=== PATIENT | male | born 1970 | race Caucasian/White ===

== ENCOUNTER 2019-11-21 10:57 | Outpatient (REF) | payer MEDICAID, SELFPAY | END 2019-11-21 10:58 | disposition home or self-care (01) | LOC: HO.LAB 10:57 | PROVIDERS: Visit Provider Internal Medicine | DX: Z20.828 Contact with and (suspected) exposure to other viral communicable diseases (principal) | CPT/HCPCS: 36415; 87635 ==

== ENCOUNTER 2019-11-28 16:48 | Emergency (ER) | payer MEDICAID, SELFPAY | END 2019-11-28 19:00 | disposition left against medical advice (07) | PROVIDERS: Emergency Provider Emergency Medicine | DX: Z76.0 Encounter for issue of repeat prescription (principal) | CPT/HCPCS: 99281 ==

== ENCOUNTER 2019-11-29 10:53 | Emergency (ER) | payer MEDICAID, SELFPAY ==
[2019-11-29 11:09] VITALS: BP 145/90; PULSE 97; RESP 17; TEMP 36.6; O2SAT 94; BMI 30.1
--- NOTE | 2019-11-29 11:18 | ED_ITS ---
HPI - General Adult General Chief complaint: General Medical Stated complaint: MED REFILL Time Seen by Provider: 11/29/19 11:18 Source: patient Mode of arrival: ambulatory History of Present Illness HPI narrative: 49 y/o with history of recently diagnosed PE started on Eliquis - given starter dose pack and is about to run out of his prescription. He is here for medication refill. He made an appointment with PCP but it is not for several more weeks. He denies chest pain, SOB. MD complaint: medication refill Onset (ago): unknown Relieving factors: none Exacerbating factors: none Associated symptoms: denies other symptoms Treatments prior to arrival: none Related Data Previous Rx's Medication Instructions Recorded apixaban [Eliquis] 5 mg PO BID #60 tab 11/29/19 Allergies Allergy/AdvReac Type Severity Reaction Status Date / Time No Known Allergies Allergy Unverified 11/02/19 15:38 Review of Systems Review of Systems: Constitutional: No Fever, No Chills ENT/Mouth: No sore throat, No Rhinorrhea, No Swallowing Difficulty Cardiovascular: No Chest Pain, No SOB, No Orthopnea, No Edema Respiratory: No Cough, No Sputum, No Wheezing, No dyspnea Gastrointestinal: No Hematochezia, No Melena Genitourinary: No Dysuria, No Urinary Frequency, No Hematuria Musculoskeletal: No joint pain, No Myalgias Skin: + Skin Lesions, No rash Neuro: No Weakness, No Numbness, No Dizziness, No Headache Psych: No Anxiety/Panic, No Depression Heme/Lymph: + Bruising, No Lymphadenopathy Endocrine: No Polyuria, No Polydipsia [facility] Past Medical History Medical History (Updated 11/29/19 @ 11:23 by ADEOLA Fish) Pulmonary embolism Social History Social History (Updated 11/29/19 @ 11:49 by ADEOLA Fish) Alcohol intake: current Alcohol intake frequency: a few times a week Alcohol type: beer Smoking Status: Current every day smoker Use of substances other than those prescribed or required for medical reasons: No Substance Use Type: Crack/Cocaine Advance Directives: No Advance Directives Information Provided: No Physical Exam Vital Signs: Vital Signs: Vital Signs Temp Pulse Resp BP Pulse Ox 11/29/19 11:09 97.8 F 97 17 145/90 H 94 Body Mass Index 30.1 Appearance: Alert. Oriented X3. No acute distress. HEENT: normal inspection CVS: Normal heart rate and rhythm. Pulses normal. Respiratory: No respiratory distress. Skin: Skin warm and dry. Normal skin color. Normal skin turgor. No rashes. Extremities: left upper extremity with tenderness along superficial vein of brachial area - no erythema or edema. +2 radial pulses. Neuro: Oriented X 3. No motor deficit. No sensory deficit. Course Course Course Narrative: needs Eliquis refill until he can be seen by PCP also asked to evaluate left upper extrmity tenderness and bumps - exam supports superficial thrombophelbitis. doubt UE DVT given exam findings and he is anticoagulated with no provoking factors. Discharge Plan Discharge Clinical Impression: Medication refill Superficial thrombophlebitis of arm Qualifiers: Laterality: left Qualified Code(s): I80.8 - Phlebitis and thrombophlebitis of other sites Patient Disposition: Home, Self-Care Instructions: Superficial Thrombophlebitis (ED) Additional Instructions: Take your Eliquis as directed. Follow up with your doctor for further management and further medication refills. Prescriptions: New Eliquis 5 mg tablet 5 mg PO BID Qty: 60 RF: 1 Interventions: ED Discharge Assessment Last Done: 11/29/19 11:30 Discharge Date/Time: 11/29/19 11:30
== END 2019-11-29 11:30 | disposition home or self-care (01) ==
PROVIDERS: Emergency Provider Emergency Medicine
DX: I80.8 Phlebitis and thrombophlebitis of other sites (principal); Z76.0 Encounter for issue of repeat prescription; F14.90 Cocaine use, unspecified, uncomplicated; F17.200 Nicotine dependence, unspecified, uncomplicated; Z71.6 Tobacco abuse counseling; Z79.01 Long term (current) use of anticoagulants; Z86.711 Personal history of pulmonary embolism
CPT/HCPCS: 99283

== ENCOUNTER 2019-12-26 22:11 | Emergency (ER) | payer MEDICAID, SELFPAY ==
[2019-12-26 22:14] VITALS: BP 141/84; PULSE 120; RESP 18; TEMP 36.1; O2SAT 99; BMI 28.8
--- NOTE | 2019-12-27 | CT_ITS ---
EXAMINATION: CT HEAD WITHOUT CONTRAST CLINICAL INFORMATION: Headache. COMPARISON: None. TECHNIQUE: Contiguous helical images of the brain were obtained without IV contrast. Multiplanar reconstructions were performed. DLP: 795 mGy-cm. FINDINGS: There are no pathologic extra-axial fluid collections. The lateral, third, fourth ventricles are nondilated and concordant with the appearance of the sulci. There is no evidence for acute intraparenchymal hemorrhage or infarct. There is neither mass nor mass effect. There is no shift of midline structures. The paranasal sinuses and mastoid air cells are clear. There are no osseous lesions. CT/CT head/brain wo con IMPRESSION: No evidence for acute intracranial injury. Automated exposure control (Care Dose) Adjustment of the mA and/or kv according to patient size (this includes techniques or standardized protocols for targeted exams where dose is matched to indication / reason for exam; i.e. extremities or head).
[2019-12-27] MEDS: diphenhydrAMINE HCL 25 MG TABLET 50 MG PO (00:18)
[2019-12-27] MEDS: Metoclopramide HCl 10 MG TABLET PO (00:19)
--- NOTE | 2019-12-27 00:41 | ED_ITS ---
HPI - Headache General Chief Complaint: Headache Stated Complaint: HEADACHE Time Seen by Provider: 12/26/19 23:39 Source: patient Mode of arrival: ambulatory Limitations: no limitations History of Present Illness HPI Narrative: Patient's presents to ED for headache that began around 12:00 p.m.. Patient describes headache as frontal pressure headache. Patient states headache improving with marijuana. Patient states slight photophobia. Patient does have history of migraines. Patient denies any slurred speech, neck stiffness, shortness of breath, chest pain, loss of vision, slurred speech, weakness of extremities. Patient came to the ED disc to make sure there was no bleeding the brain because he is on Eliquis. Patient denies any recent head trauma Related Data Previous Rx's Medication Instructions Recorded apixaban [Eliquis] 5 mg PO BID #60 tab 11/29/19 [id number]-cngcowswwtaib-cdqj 1 cap PO Q4-6H PRN #28 cap 12/27/19 [Fioricet] Allergies Allergy/AdvReac Type Severity Reaction Status Date / Time No Known Allergies Allergy Verified 12/26/19 23:31 Review of Systems Review of Systems: Yes all other systems are reviewed and are negative Constitutional: Constitutional: Reports no additional constitutional complaints and Reports headache(s) Eyes: Eyes: Reports as per HPI and Reports no additional eye complaints ENT: Reports system reviewed and no additional complaints, except as documented, Reports as per HPI and Reports headache(s) Cardiovascular: Cardiovascular: Reports as per HPI and Reports no additional cardiovascular complaints Respiratory: Respiratory: Reports as per HPI and Reports no additional respiratory complaints Gastrointestinal: Gastrointestinal: Reports as per HPI and Reports no additional gastrointestinal complaints Genitourinary: Genitourinary: Reports no additional male genitourinary complaints and Reports as per HPI Musculoskeletal: Musculoskeletal: Reports no additional musculoskeletal complaints and Reports as per HPI Neurologic: Reports system reviewed and no additional complaints, except as documented, Reports as per HPI and Reports headache(s) Psychiatric: Psychiatric: Reports no additional psychiatric complaints and Reports as per HPI PMFSH Past Medical History Medical History (Updated 12/27/19 @ 01:14 by ADEOLA Rico) Pulmonary embolism Social History Social History (Updated 11/29/19 @ 11:49 by ADEOLA Fish) Alcohol intake: current Alcohol intake frequency: does not drink Alcohol type: beer Smoking Status: Current every day smoker Use of substances other than those prescribed or required for medical reasons: No Substance Use Type: Marijuana Substance Use Frequency: Occasionally Advance Directives: No Advance Directives Information Provided: No Physical Exam Vital Signs: Vital Signs: Last Vital Signs Temp 97 F 12/26/19 22:14 Pulse 98 12/27/19 01:08 Resp 15 12/27/19 01:08 BP 134/88 12/27/19 01:08 Pulse Ox 98 12/27/19 01:08 Body Mass Index 28.8 Const: General: cooperative, healthy appearing, comfortable, no acute distress, well developed, alert and awake Orientation/consciousness: patient oriented x3 HENMT: Head: Yes normal to inspection, Yes No palpable skull fracture present, Yes atraumatic, No Acrocyanosis present, No Coffey's sign, No contusion, No cranial bruits, No laceration, No palpable skull fracture, No raccoon eyes and No Temporal artery tenderness present Eyes: Other: mild photophobia General: appearance normal, both eyes and all related structures Visual Carnes: normal visual carnes by confrontation Neck: Neck: Yes normal visual inspection, Yes full ROM, Yes no lymphadenopathy, Yes no meningeal signs, Yes trachea midline and No tender Chest: Chest palpation & inspection: normal inspection of the chest, normal palpation of entire chest wall and no localized rib tenderness Resp: Effort & Inspection: normal respiratory effort and able to speak in complete sentences Auscultation: clear to auscultation bilaterally, no crackles, no rales, no rhonchi and no wheezes Cardio: Jugular venous distension: no JVD Heart sounds: S1 normal heart sound present and S2 normal heart sound present GI: Inspection: Yes normal to inspection and No abdominal wall ecchymosis Palpation (GI): Soft to palpation, not firm, nontender, no guarding and not rigid : General: No CVA tenderness and Yes no CVA tenderness Back/Spine/Pelvis: Back: no CVA tenderness, No CVA tenderness and No back tenderness Skin: General skin exam: no rashes or lesions noted Neuro: Other: cranial nerves intact. Negative facial droop. Motor/neuro /vascular exam of all extremities are intact. Strength is equal in all extremities. Negative Romberg test. Patient able to do rapid hand eye movements. Negative for nystagmus. General: patient oriented x3, gait normal, no meningeal signs and CN's II-XI intact bilaterally Cranial nerves: Yes CN's II-XII intact bilaterally Course Course Course Narrative: patient will be sent for head CT scan to rule out bleed. Patient had the same time will be given Fioricet, Benadryl, and Reglan. Will also check bilateral eye pressures. Reevaluation(s) Reevaluation #1: Patient's headache resolved after receiving Fioricet, Benadryl, and Reglan. Patient's head CT scan came back negative for bleed or stroke. Patient left eye tonometry pressure is 6. Patient's right eye tonometry pressures 10. Negative for glaucoma. Negative for any temporal tenderness or blurry vision to indicate temporal arthritis. Negative for any dizziness or chest pain to indicate NV. Patient is safe for discharge Time: 01:12 MDM - Headache MDM Narrative Medical decision making narrative: migraines Discharge Plan Discharge Clinical Impression: Migraine Patient Disposition: Home, Self-Care Instructions: Migraine Headache (ED) Additional Instructions: return to the ED for worsening headache, nausea, vomiting, neck stiffness, slurred speech, loss of vision, paralysis of extremities, or any other concerning symptoms. Please follow-up witth your PCP Prescriptions: New nhbtwwhhbg-dqodurrvaavnv-rejf [Fioricet] 50-300-40 mg capsule 1 cap PO Q4-6H PRN (Reason: pain) Qty: 28 RF: 0 No Action Eliquis 5 mg tablet 5 mg PO BID Qty: 60 RF: 1 Interventions: ED Discharge Assessment Last Done: 12/27/19 01:25 Discharge Date/Time: 12/27/19 01:26 Print Language: Slovak
[2019-12-27 01:08] VITALS: BP 134/88; PULSE 98; RESP 15; O2SAT 98
== END 2019-12-27 01:26 | disposition home or self-care (01) ==
PROVIDERS: Emergency Provider Emergency Medicine
DX: G43.909 Migraine, unspecified, not intractable, without status migrainosus (principal); H53.143 Visual discomfort, bilateral; Z79.899 Other long term (current) drug therapy; F17.200 Nicotine dependence, unspecified, uncomplicated; Z71.6 Tobacco abuse counseling
CPT/HCPCS: 70450; 99284; Q0163

== ENCOUNTER 2019-12-28 13:57 | Outpatient (REF) | payer MEDICAID, SELFPAY ==
--- NOTE | 2019-12-28 14:00 | CT_ITS ---
EXAMINATION: CT ANGIOGRAM OF THE CHEST WITH AND WITHOUT CONTRAST (CT PULMONARY ANGIOGRAM FOR PE) CLINICAL INFORMATION: Pulmonary embolism. COMPARISON: 10/31/2019 TECHNIQUE: Prior to contrast administration, noncontrast localization images were obtained. Subsequently, multidetector volumetric imaging was performed from the thoracic inlet to below the diaphragms following the administration of 65 mL Omnipaque 350 intravenous contrast. No contrast reaction reported Sagittal, coronal, and MIP oblique sagittal reformatted images were obtained on the CT workstation, uploaded to PACS, and reviewed. This CT examination was performed using dose optimization techniques as appropriate, variously including the following: *Automated exposure control *Adjustment of mA and/or kV according to patient size (this includes techniques or standardized protocols for targeted exams where dose is matched to indication/reason for exam; i.e. extremities or head) *Use of iterative reconstruction technique Total exam dose-length product 147 mGy-cm FINDINGS: QUALITY OF STUDY/CONTRAST BOLUS: Satisfactory. PULMONARY ARTERIES: No central or segmental pulmonary emboli. The previous right lower lobe subsegmental pulmonary embolism has resolved. THORACIC AORTA: No aneurysm or dissection. LUNG: No focal consolidation, nodules or masses. The central airways are patent. PLEURA: No pleural effusion or pneumothorax. MEDIASTINUM: Normal heart size. No pericardial effusion. No hilar or mediastinal lymphadenopathy. No evidence of septal bowing or right heart strain. CHEST WALL/AXILLA: No axillary or internal mammary lymphadenopathy. OSSEOUS STRUCTURES: No acute or suspicious osseous abnormality. Mild degenerative changes in the spine. UPPER ABDOMEN: Unremarkable. No reflux of contrast into the hepatic veins to suggest elevated right heart pressures. CT/CT angio chest IMPRESSION: No pulmonary embolism or other acute intrathoracic abnormality. There is resolution of the previous right lower lobe subsegmental pulmonary embolism. VTE: negative
== END 2019-12-28 13:58 | disposition home or self-care (01) ==
LOC: HO.CT 13:57
DX: I26.99 Other pulmonary embolism without acute cor pulmonale (principal)
CPT/HCPCS: 71275

== ENCOUNTER 2020-02-08 07:29 | Emergency (ER) | payer MEDICAID, SELFPAY ==
[2020-02-08 07:50] VITALS: BP 113/46; PULSE 78; RESP 18; TEMP 35.8; O2SAT 100; BMI 31.5
--- NOTE | 2020-02-08 08:12 | XR_ITS ---
EXAMINATION: XR ANKLE, RIGHT CLINICAL INFORMATION: Redness COMPARISON: None TECHNIQUE: AP, lateral, and mortise views of the right ankle. FINDINGS: There is mild medial and lateral soft tissue swelling. No gas tracking in soft tissue planes. There is no bony destructive process. Bony mineralization is normal. No periostitis. There is no fracture or dislocation. No joint narrowing or erosive change. The ankle mortise is symmetric. No visible ankle capsular effusion. The subtalar joint is normal. The retrocalcaneal recess is preserved. There is some benign fine linear calcification anterior soft tissues on lateral view. XR/XR ankle RT min 3V IMPRESSION: 1. Mild soft tissue swelling. No bony destructive process, fracture, or gas tracking in the soft tissues. 2. No visible ankle capsular effusion. No joint narrowing.
--- NOTE | 2020-02-08 08:17 | ED.LOWEXIN ---
HPI - Extremity Injury (Lower) General Chief Complaint: Extremity Injury, Lower Stated Complaint: swollen rt leg Time Seen by Provider: 02/08/20 08:12 History of Present Illness HPI Narrative: Patient is a 49-year-old male history of blood clots. On Eliquis. Claims compliance. Also has a long history of heroin abuse. Last shooting up was last night. Complaining of swelling redness to the right ankle. No fever no chills. No systemic complaints. No coughing or congestion or upper respiratory symptoms no diaphoresis. Patient is from home. Pain on ambulation. Related Data Previous Rx's Medication Instructions Recorded apixaban [Eliquis] 5 mg PO BID #60 tab 11/29/19 [id number]-[id number] 1 cap PO Q4-6H PRN #28 cap 12/27/19 [Fioricet] clindamycin HCl 300 mg PO Q6H 7 Days #28 cap 02/08/20 Allergies Allergy/AdvReac Type Severity Reaction Status Date / Time No Known Allergies Allergy Verified 12/26/19 23:31 Review of Systems Review of Systems: Constitutional: No Weight loss, No Fever, No Chills, No Night Sweats, No Fatigue, No Malaise ENT/Mouth: No Hearing loss, No Ear Pain, No Nasal Congestion, No Sinus Pain, No Hoarseness, No sore throat, No Rhinorrhea, No Swallowing Difficulty Eyes: No Eye Pain, No Swelling, No Redness, No Foreign Body, No Discharge, No Vision Changes Cardiovascular: No Chest Pain, No SOB, No Dyspnea on Exertion, No Orthopnea, No Edema, No Palpitations Respiratory: No Cough, No Sputum, No Wheezing, No Smoke Exposure, No Dyspnea Gastrointestinal: No Nausea, No Vomiting, No Diarrhea, No Constipation, No abdominal Pain, No Hematochezia, No Melena Genitourinary: no irregular bleeding, No Dysuria, No Urinary Frequency, No Hematuria, No Urinary Incontinence, No Urgency, No Flank Pain, No Urinary Flow Changes, No Hesitancy Musculoskeletal: Positive right ankle pain, positive right ankle swelling Skin: No Skin Lesions, No rash Neuro: No Weakness, No Numbness, No Paresthesias, No Loss of Consciousness, No Dizziness, No Headache Psych: No Anxiety/Panic, No Depression, No SI/HI/AH/VH, No Social Issues, Heme/Lymph: No Bruising, No Bleeding,No Lymphadenopathy Endocrine: No Polyuria, No Polydipsia, No Temperature Intolerance [facility] Past Medical History Attestation statement: The following information was validated with the patient. Medical History Pulmonary embolism Surgical History History of appendectomy Social History Social History (Updated 11/29/19 @ 11:49 by ADEOLA Fish) Alcohol intake: unknown Smoking Status: Unknown if ever smoked Use of substances other than those prescribed or required for medical reasons: Yes Substance Use Type: IV Drugs Advance Directives: No Advance Directives Information Provided: No Physical Exam Vital Signs: Vital Signs: Last Vital Signs Temp 98.7 F 02/08/20 12:24 Pulse 70 02/08/20 12:24 Resp 16 02/08/20 12:24 BP 154/95 H 02/08/20 12:24 Pulse Ox 99 02/08/20 12:24 Body Mass Index 31.5 Appearance: Alert. Oriented X3. No acute distress. Eyes: Pupils equal, round and reactive to light. ENT: Pharynx normal. Neck: Normal inspection. Neck supple. No lymph nodes noted. No crepitus CVS: Normal heart rate and rhythm. Pulses normal. Normal S1 and S2 Respiratory: No respiratory distress. Breath sounds normal. No Wheezing. No rales Abdomen: Soft and nontender. No rigidity. No distention. good BS x4 Skin: Skin warm and dry. Normal skin color. Normal skin turgor. Extremities: Examination of the right ankle showed slight erythema over the lateral malleolus. With decreased range of motion. Swelling. Pulse 2 +at dorsalis pedis. Sensation intact. Neuro: Oriented X 3. No motor deficit. No sensory deficit. Moving all extermities. No slurred speech MDM - Extremity Injury (Lower) MDM Narrative Medical decision making narrative: Patient's white count is normal. Is on Eliquis. Doppler showed no evidence of DVT. Patient is x-ray showed no evidence of fracture. Patient's sed rate is 22 on the low side. This provider cannot feel enough fluid to be tapped. An ultrasound of the ankle done. There is no effusion noted. Discussed with interventional radiology there is not enough fluid to be tapped by IR. Question cellulitis of the ankle. Will start patient on antibiotics. Will discharge patient home follow-up on an outpatient basis. Ask patient to stop using heroin. Close follow-up on an outpatient basis. Differential Diagnosis Differential diagnosis: Likely ankle sprain and strain Lab Data Attestation: I reviewed the patient's lab results. Result diagrams: 02/08/20 08:50 02/08/20 08:50 Labs: Lab Results 02/08/20 02/08/20 02/08/20 Range/Units 08:50 08:50 08:50 WBC 6.8 (4.8-10.8) X10*3/uL RBC 4.06 L (4.60-5.80) X10*6/uL Hgb 11.9 L (14.0-18.0) g/dl Hct 36.5 L (42-52) % MCV 89.9 (80-98) fL MCH 29.3 (27.0-33.0) pg MCHC 32.6 (31.0-36.0) g/dl RDW 12.7 (11.0-16.0) % Plt Count 213 (160-400) X10*3/uL MPV 9.1 L (9.4-12.4) fL Immature Gran % (Auto) 0.3 (0.0-0.4) % Neut % (Auto) 73.6 H (45-73) % Lymph % (Auto) 15.6 L (20-40) % [place] % (Auto) 9.1 (2-11) % Eos % (Auto) 1.3 (0-4) % Baso % (Auto) 0.1 (0-2) % Lymph # (Auto) 1.1 L (1.2-4.9) X10*3/uL [place] # (Auto) 0.6 (0.1-1.2) X10*3/uL Eos # (Auto) 0.1 (0.0-0.4) X10*3/uL Baso # (Auto) 0.0 (0.0-0.2) X10*3/uL Abs Immat Gran (auto) 0.02 (0.00-0.03) X10*3/uL Absolute Neuts (auto) 5.0 (2.0-8.3) X10*3/uL Absolute Nucleated RBC 0.000 (0.0-0.012) X10*3/uL Nucleated RBC % (auto) 0.0 (0.0-0.2) /100WBC ESR 22 H (0-15) MM/HR PT 13.1 H (10.8-13.0) SEC INR 1.1 (0.9-1.1) Sodium (135-145) mmol/L Potassium (3.3-5.1) mmol/l Chloride (96-108) mmol/L Carbon Dioxide (22-29) mmol/L Anion Gap (12-20) BUN (9-16) mg/dL Creatinine (0.5-1.4) mg/dL Estim Creat Clear Calc Estimated GFR Random Glucose (60-115) mg/dL Lactic Acid (0.5-2.0) mmol/L Uric Acid (3.4-7.0) mg/dL Calcium (8.4-10.2) mg/dL 02/08/20 02/08/20 Range/Units 08:50 08:56 WBC (4.8-10.8) X10*3/uL RBC (4.60-5.80) X10*6/uL Hgb (14.0-18.0) g/dl Hct (42-52) % MCV (80-98) fL MCH (27.0-33.0) pg MCHC (31.0-36.0) g/dl RDW (11.0-16.0) % Plt Count (160-400) X10*3/uL MPV (9.4-12.4) fL Immature Gran % (Auto) (0.0-0.4) % Neut % (Auto) (45-73) % Lymph % (Auto) (20-40) % [place] % (Auto) (2-11) % Eos % (Auto) (0-4) % Baso % (Auto) (0-2) % Lymph # (Auto) (1.2-4.9) X10*3/uL [place] # (Auto) (0.1-1.2) X10*3/uL Eos # (Auto) (0.0-0.4) X10*3/uL Baso # (Auto) (0.0-0.2) X10*3/uL Abs Immat Gran (auto) (0.00-0.03) X10*3/uL Absolute Neuts (auto) (2.0-8.3) X10*3/uL Absolute Nucleated RBC (0.0-0.012) X10*3/uL Nucleated RBC % (auto) (0.0-0.2) /100WBC ESR (0-15) MM/HR PT (10.8-13.0) SEC INR (0.9-1.1) Sodium 136 (135-145) mmol/L Potassium 4.0 (3.3-5.1) mmol/l Chloride 103 (96-108) mmol/L Carbon Dioxide 27 (22-29) mmol/L Anion Gap 10 L (12-20) BUN 16 (9-16) mg/dL Creatinine 0.92 (0.5-1.4) mg/dL Estim Creat Clear Calc 117.5 Estimated GFR > 60 Random Glucose 150 H (60-115) mg/dL Lactic Acid 1.4 (0.5-2.0) mmol/L Uric Acid 4.6 (3.4-7.0) mg/dL Calcium 8.3 L (8.4-10.2) mg/dL Discharge Plan Discharge Clinical Impression: Ankle sprain and strain, Cellulitis Patient Disposition: Home, Self-Care Instructions: Cellulitis (ED) Additional Instructions: Please stop using heroin. Using heroin can kill you. It can cause all types of infection. Please take your antibiotic diligently. Please closely follow-up with your doctor. Prescriptions: New clindamycin HCl 300 mg capsule 300 mg PO Q6H 7 Days Qty: 28 RF: 0 No Action ofatkwmygb-kqafxocmlloow-mdig [Fioricet] 50-300-40 mg capsule 1 cap PO Q4-6H PRN (Reason: pain) Qty: 28 RF: 0 Eliquis 5 mg tablet 5 mg PO BID Qty: 60 RF: 1 Referrals: [facility] [Primary Care Provider] - 2 days
[2020-02-08 08:57] LABS: MANUAL DIFF FLAG NO
[2020-02-08 08:59] LABS: Basophils Percent Auto 0.1 % (0-2); Eosinophils Absolute Auto 0.1 X10*3/uL (0.0-0.4); Eosinophils Percent Auto 1.3 % (0-4); Hematocrit 36.5 % (42-52); Hemoglobin 11.9 g/dl (14.0-18.0); Imm Gran Abs Auto 0.02 X10*3/uL (0.00-0.03); Imm Gran Pct Auto 0.3 % (0.0-0.4); Lymphocytes Absolute Auto 1.1 X10*3/uL (1.2-4.9); Lymphocytes Percent Auto 15.6 % (20-40); Mean Corpuscular HGB Conc 32.6 g/dl (31.0-36.0); Mean Corpuscular Hemoglobin 29.3 pg (27.0-33.0); Mean Corpuscular Volume 89.9 fL (80-98); Mean Platelet Volume 9.1 fL (9.4-12.4); Monocytes Absolute Auto 0.6 X10*3/uL (0.1-1.2); Monocytes Percent Auto 9.1 % (2-11); Neutrophils Percent Auto 73.6 % (45-73); Platelet Count 213 X10*3/uL (160-400); Red Blood Count 4.06 X10*6/uL (4.60-5.80); Red Cell Distribution Width 12.7 % (11.0-16.0); White Blood Count 6.8 X10*3/uL (4.8-10.8)
[2020-02-08 09:10] LABS: INTERNATIONAL NORM RATIO 1.1 (0.9-1.1); Prothrombin Time 13.1 SEC (10.8-13.0)
[2020-02-08 09:22] LABS: Lactic Acid 1.4 mmol/L (0.5-2.0)
[2020-02-08 09:27] LABS: Anion Gap 10 (12-20); Blood Urea Nitrogen 16 mg/dL (9-16); Calcium 8.3 mg/dL (8.4-10.2); Carbon Dioxide 27 mmol/L (22-29); Chloride 103 mmol/L (96-108); Creatinine Clr Calc Pharmacy 117.5; Estimated Glomerular Filt Rate > 60; Glucose Random 150 mg/dL (60-115); Sodium 136 mmol/L (135-145); Uric Acid 4.6 mg/dL (3.4-7.0)
[2020-02-08 09:37] LABS: Erythrocyte Sedimentation Rate 22 MM/HR (0-15)
[2020-02-08 10:00] VITALS: RESP 16
--- NOTE | 2020-02-08 10:29 | US_ITS ---
EXAMINATION: US EXTREMITY NONVASCULAR CLINICAL INFORMATION: Redness, swelling. Assess for effusion. COMPARISON: Radiographs right ankle 02/08/2020 TECHNIQUE: Ultrasound of the right ankle soft tissues is performed. Grayscale imaging and color Doppler are performed. FINDINGS: There is circumferential edema in the subcutaneous space without focal loculated fluid collection in the superficial lower visualized deep soft tissues. No visible ankle capsular effusion. No soft tissue abscess. Note no synovitis seen. US/US extremity nonvascular IMPRESSION: 1. Circumferential subcutaneous edema around right ankle. 2. No visible capsular effusion, tenosynovitis, or abscess.
[2020-02-08 12:00] VITALS: RESP 16
[2020-02-08 12:24] VITALS: BP 154/95; PULSE 70; RESP 16; TEMP 37.1; O2SAT 99
== END 2020-02-08 14:19 | disposition home or self-care (01) ==
PROVIDERS: Emergency Provider Emergency Medicine Emergency Medical Services
DX: S93.401A Sprain of unspecified ligament of right ankle, initial encounter (principal); S96.911A Strain of unspecified muscle and tendon at ankle and foot level, right foot, initial encounter; X58.XXXA Exposure to other specified factors, initial encounter; M25.571 Pain in right ankle and joints of right foot; L03.115 Cellulitis of right lower limb; F11.10 Opioid abuse, uncomplicated; Y93.9 Activity, unspecified; Y92.9 Unspecified place or not applicable; Y99.9 Unspecified external cause status; Z86.718 Personal history of other venous thrombosis and embolism; Z79.01 Long term (current) use of anticoagulants
CPT/HCPCS: 36415; 73610; 76882; 80048; 83605; 84550; 85025; 85610; 85652; 87040; 99284; J0690

== ENCOUNTER 2020-06-11 16:15 | Outpatient (REF) | payer MEDICAID, SELFPAY | END 2020-06-11 16:16 | disposition home or self-care (01) | LOC: HO.LAB 16:15 | PROVIDERS: Visit Provider Internal Medicine | DX: Z13.89 Encounter for screening for other disorder (principal) ==

== ENCOUNTER 2020-09-07 01:46 | Emergency (ER) | payer MEDICAID, SELFPAY ==
--- NOTE | ~2020-09-07 | CT_ITS ---
EXAMINATION: CT ABDOMEN AND PELVIS WITHOUT CONTRAST CLINICAL INFORMATION: Right flank pain COMPARISON: None TECHNIQUE: Multidetector volumetric imaging was performed from the superior aspect of the liver through the pubic symphysis. Sagittal and coronal reformatted images were obtained on the technologist's workstation. This CT examination was performed using dose optimization techniques as appropriate, variously including the following: *Automated exposure control *Adjustment of mA and/or kV according to patient size (this includes techniques or standardized protocols for targeted exams where dose is matched to indication/reason for exam; i.e. extremities or head) *Use of iterative reconstruction technique DLP: 637 mGy-cm FINDINGS: LUNG BASES: The visualized lung bases are unremarkable. LIVER, GALLBLADDER, AND BILIARY TREE: The liver is normal in size, shape, and attenuation. No focal hepatic lesion or biliary ductal dilatation is present. The gallbladder appears contracted. PANCREAS: Unremarkable. SPLEEN: Unremarkable. ADRENAL GLANDS: Unremarkable. KIDNEYS AND URETERS: The kidneys are normal in size, shape, and attenuation. No hydronephrosis, hydroureter, or obstructing calculi seen. Punctate calculus noted in the lower left kidney. No perinephric stranding. BLADDER: Unremarkable. GASTROINTESTINAL TRACT: The small and large bowel are unremarkable. Moderate amount of stool is present in the colon. The appendix is is not visualized. No free fluid or free air is seen. ABDOMINAL WALL: No significant hernia is appreciated. LYMPH NODES: Normal. VASCULAR: Unremarkable. PELVIC VISCERA: Unremarkable. OSSEOUS STRUCTURES: Mild scattered degenerative changes noted in the spine. CT/CT abdomen pelvis wo con IMPRESSION: No hydronephrosis or obstructing calculus. Punctate left lower pole renal calculus noted.
[2020-09-07 02:22] VITALS: BP 105/61; PULSE 94; RESP 16; TEMP 37; O2SAT 99; BMI 32.2
[2020-09-07 02:53] LABS: Glucose Urine UA NEG (NEG); Leukocyte Esterase Urine 1+ (NEG); Nitrite Urine NEG (NEG); Specific Gravity - Urine >= 1.030 (1.005-1.025); Urine Blood 1+ (NEG); Urine Ketones NEG (NEG); Urine Protein NEG (NEG-TRACE)
[2020-09-07 02:54] LABS: Appearance Urine CLEAR; Color Urine YELLOW
[2020-09-07 03:02] LABS: Bacteria Urine TRACE /LPF; RBC Urine 0-2 /HPF (0); Squamous Epithelial Cell Urine TRACE /LPF
[2020-09-07 03:04] LABS: Amphetamine Screen Urine Not Detected (Not Detect); Barbiturates, Urine Not Detected (Not Detect); Benzodiazepines Screen Urine Not Detected (Not Detect); Cannabinoid Screen Urine Not Detected (Not Detect); Cocaine Screen Urine POSITIVE (Not Detect); Opiate Screen Urine POSITIVE (Not Detect); Phencyclidine Screen Urine Not Detected (Not Detect)
[2020-09-07 03:11] LABS: MANUAL DIFF FLAG NO
[2020-09-07 03:14] LABS: Basophils Percent Auto 0.2 % (0-2); Eosinophils Absolute Auto 0.2 X10*3/uL (0.0-0.4); Hematocrit 35.4 % (42-52); Hemoglobin 11.5 g/dl (14.0-18.0); Imm Gran Abs Auto 0.01 X10*3/uL (0.00-0.03); Imm Gran Pct Auto 0.2 % (0.0-0.4); Lymphocytes Absolute Auto 1.4 X10*3/uL (1.2-4.9); Lymphocytes Percent Auto 24.7 % (20-40); Mean Corpuscular HGB Conc 32.5 g/dl (31.0-36.0); Mean Corpuscular Hemoglobin 28.8 pg (27.0-33.0); Mean Corpuscular Volume 88.7 fL (80-98); Mean Platelet Volume 9.1 fL (9.4-12.4); Monocytes Absolute Auto 0.6 X10*3/uL (0.1-1.2); Monocytes Percent Auto 10.8 % (2-11); Neutrophils Absolute Auto 3.5 X10*3/uL (2.0-8.3); Neutrophils Percent Auto 61.1 % (45-73); Platelet Count 267 X10*3/uL (160-400); Red Blood Count 3.99 X10*6/uL (4.60-5.80); Red Cell Distribution Width 13.5 % (11.0-16.0); White Blood Count 5.8 X10*3/uL (4.8-10.8)
[2020-09-07 03:22] LABS: D Dimer 213 NG/ML
[2020-09-07 03:43] LABS: Anion Gap 12 (12-20); Blood Urea Nitrogen 15 mg/dL (9-16); Carbon Dioxide 26 mmol/L (22-29); Chloride 108 mmol/L (96-108); Creatinine Clr Calc Pharmacy 99.5; Estimated Glomerular Filt Rate > 60; Glucose Random 119 mg/dL (60-115); Potassium 3.7 mmol/L (3.3-5.1); Sodium 142 mmol/L (135-145)
--- NOTE | 2020-09-07 03:57 | ED_ITS ---
HPI - Back Pain/Injury General Chief Complaint: Back Pain/Injury Stated Complaint: PT believes to have blood clot, was admitted prev. Time Seen by Provider: 09/07/20 01:47 Source: patient Mode of arrival: ambulatory Limitations: no limitations History of Present Illness HPI Narrative: Patient comes emergency room complaining of right-sided flank pain for several days. Patient denies dysuria, no hematuria. No nausea or vomiting. Patient states the pain is constant, nonradiating, sharp. MD elicited complaint: back pain Related Data Previous Rx's Medication Instructions Recorded levofloxacin 500 mg PO DAILY #9 tab 09/07/20 Allergies Allergy/AdvReac Type Severity Reaction Status Date / Time No Known Allergies Allergy Verified 09/07/20 02:22 Review of Systems Review of Systems: Constitutional : No Weight loss, No Fever, No Chills, No Night Sweats, No Fatigue, No Malaise ENT/Mouth : No Hearing loss, No Ear Pain, No Nasal Congestion, No Sinus Pain, No Hoarseness, No sore throat, No Rhinorrhea, No Swallowing Difficulty Eyes: No Eye Pain, No Swelling, No Redness, No Foreign Body, No Discharge, No Vision Changes Cardiovascular : No Chest Pain, No SOB, No Dyspnea on Exertion, No Orthopnea, No Edema, No Palpitations Respiratory : No Cough, No Sputum, No Wheezing, No Smoke Exposure, No Dyspnea Gastrointestinal : No Nausea, No Vomiting, No Diarrhea, No Constipation, No abdominal Pain, No Hematochezia, No Melena Genitourinary : no irregular bleeding, No Dysuria, No Urinary Frequency, No Hem aturia, No Urinary Incontinence, No Urgency, complaining of right-sided Flank Pain, No Urinary Flow Changes, No Hesitancy Musculoskeletal : No joint pain, No Myalgias, No Joint Swelling Skin : No Skin Lesions, No rash Neuro : No Weakness, No Numbness, No Paresthesias, No Loss of Consciousness, No Dizziness, No Headache Psych : No Anxiety/Panic, No Depression, No SI/HI/AH/VH, No Social Issues, Heme/Lymph: No Bruising, No Bleeding,No Lymphadenopathy Endocrine : No Polyuria, No Polydipsia, No Temperature Intolerance PMFSH Past Medical History Medical History Pulmonary embolism Surgical History History of appendectomy Family History Family History (Updated 03/29/20 @ 09:23 by Salena Rothman) Sister Diabetes Maternal Grandfather Diabetes Social History Social History (Updated 03/29/20 @ 09:23 by Salena Rothman) Alcohol intake: never Patient Tobacco Use Status: Current everyday Tobacco user Years Smoked: 25 Use of substances other than those prescribed or required for medical reasons: Yes Substance Use Type: Crack/Cocaine and Heroin Substance Use Frequency: Chronic Longstanding Last Used Substance: Just Prior to Admission Any prior treatment program specific to substance use: No Advance Directives: No Advance Directives Information Provided: No Physical Exam Vital Signs: Vital Signs: Last Vital Signs Temp 98.6 F 09/07/20 02:22 Pulse 94 09/07/20 02:22 Resp 15 09/07/20 04:00 BP 105/61 09/07/20 02:22 Pulse Ox 99 09/07/20 02:22 Body Mass Index 32.2 Appearance: Alert. Oriented X3. No acute distress. Eyes: Pupils equal, round and reactive to light. ENT: Pharynx normal. Neck: Normal inspection. Neck supple. No lymph nodes noted. No crepitus CVS: Normal heart rate and rhythm. Pulses normal. Normal S1 and S2 Respiratory: No respiratory distress. Breath sounds normal. No Wheezing. No rales Abdomen: Soft and nontender. No rigidity. No distention. Mild right-sided CVA tenderness Skin: Skin warm and dry. Normal skin color. Normal skin turgor. Extremities: No lower extremity edema. No lower extremity edema. No Lacerations . No Rash Neuro: Oriented X 3. No motor deficit. No sensory deficit. Moving all extermities. No slurred speech. Course Course Course Narrative: I discussed the labs with the patient, patient likely having flank pain from the urinary tract infection, clinically pyelonephritis. Sepsis is not suspected. First dose of antibiotic levofloxacin was given in the emergency room. MDM - Back Pain/Injury Lab Data Result diagrams: 09/07/20 03:06 09/07/20 03:06 Labs: Lab Results 09/07/20 09/07/20 09/07/20 Range/Units 02:45 02:45 03:06 WBC 5.8 (4.8-10.8) X10*3/uL RBC 3.99 L (4.60-5.80) X10*6/uL Hgb 11.5 L (14.0-18.0) g/dl Hct 35.4 L (42-52) % MCV 88.7 (80-98) fL MCH 28.8 (27.0-33.0) pg MCHC 32.5 (31.0-36.0) g/dl RDW 13.5 (11.0-16.0) % Plt Count 267 (160-400) X10*3/uL MPV 9.1 L (9.4-12.4) fL Immature Gran % (Auto) 0.2 (0.0-0.4) % Neut % (Auto) 61.1 (45-73) % Lymph % (Auto) 24.7 (20-40) % [place] % (Auto) 10.8 (2-11) % Eos % (Auto) 3.0 (0-4) % Baso % (Auto) 0.2 (0-2) % Lymph # (Auto) 1.4 (1.2-4.9) X10*3/uL [place] # (Auto) 0.6 (0.1-1.2) X10*3/uL Eos # (Auto) 0.2 (0.0-0.4) X10*3/uL Baso # (Auto) 0.0 (0.0-0.2) X10*3/uL Abs Immat Gran (auto) 0.01 (0.00-0.03) X10*3/uL Absolute Neuts (auto) 3.5 (2.0-8.3) X10*3/uL Absolute Nucleated RBC 0.000 (0.0-0.012) X10*3/uL Nucleated RBC % (auto) 0.0 (0.0-0.2) /100WBC D-Dimer NG/ML Sodium (135-145) mmol/L Potassium (3.3-5.1) mmol/L Chloride (96-108) mmol/L Carbon Dioxide (22-29) mmol/L Anion Gap (12-20) BUN (9-16) mg/dL Creatinine (0.5-1.4) mg/dL Estim Creat Clear Calc Estimated GFR Random Glucose (60-115) mg/dL Calcium (8.4-10.2) mg/dL Urine Color YELLOW Urine Appearance CLEAR Urine pH 6.0 (5.0-8.0) Ur Specific [place] >= 1.030 H (1.005-1.025) Urine Protein NEG (NEG-TRACE) MG/DL Urine Glucose (UA) NEG (NEG) MG/DL Urine Ketones NEG (NEG) MG/DL Urine Blood 1+ H (NEG) Urine Nitrite NEG (NEG) Ur Leukocyte Esterase 1+ H (NEG) Urine RBC 0-2 (0) /HPF Urine WBC 1-4 (0-4) /HPF Ur Squamous Epith Cells TRACE /LPF Urine Bacteria TRACE /LPF Urine Opiates Screen POSITIVE H (Not Detect) Ur Barbiturates Screen Not Detected (Not Detect) Ur Phencyclidine Scrn Not Detected (Not Detect) Ur Amphetamines Screen Not Detected (Not Detect) U Benzodiazepines Scrn Not Detected (Not Detect) Urine Cocaine Screen POSITIVE H (Not Detect) U Marijuana (THC) Screen Not Detected (Not Detect) 09/07/20 09/07/20 Range/Units 03:06 03:06 WBC (4.8-10.8) X10*3/uL RBC (4.60-5.80) X10*6/uL Hgb (14.0-18.0) g/dl Hct (42-52) % MCV (80-98) fL MCH (27.0-33.0) pg MCHC (31.0-36.0) g/dl RDW (11.0-16.0) % Plt Count (160-400) X10*3/uL MPV (9.4-12.4) fL Immature Gran % (Auto) (0.0-0.4) % Neut % (Auto) (45-73) % Lymph % (Auto) (20-40) % [place] % (Auto) (2-11) % Eos % (Auto) (0-4) % Baso % (Auto) (0-2) % Lymph # (Auto) (1.2-4.9) X10*3/uL [place] # (Auto) (0.1-1.2) X10*3/uL Eos # (Auto) (0.0-0.4) X10*3/uL Baso # (Auto) (0.0-0.2) X10*3/uL Abs Immat Gran (auto) (0.00-0.03) X10*3/uL Absolute Neuts (auto) (2.0-8.3) X10*3/uL Absolute Nucleated RBC (0.0-0.012) X10*3/uL Nucleated RBC % (auto) (0.0-0.2) /100WBC D-Dimer 213 NG/ML Sodium 142 (135-145) mmol/L Potassium 3.7 (3.3-5.1) mmol/L Chloride 108 (96-108) mmol/L Carbon Dioxide 26 (22-29) mmol/L Anion Gap 12 (12-20) BUN 15 (9-16) mg/dL Creatinine 1.02 (0.5-1.4) mg/dL Estim Creat Clear Calc 99.5 Estimated GFR > 60 Random Glucose 119 H (60-115) mg/dL Calcium 9.0 (8.4-10.2) mg/dL Urine Color Urine Appearance Urine pH (5.0-8.0) Ur Specific [place] (1.005-1.025) Urine Protein (NEG-TRACE) MG/DL Urine Glucose (UA) (NEG) MG/DL Urine Ketones (NEG) MG/DL Urine Blood (NEG) Urine Nitrite (NEG) Ur Leukocyte Esterase (NEG) Urine RBC (0) /HPF Urine WBC (0-4) /HPF Ur Squamous Epith Cells /LPF Urine Bacteria /LPF Urine Opiates Screen (Not Detect) Ur Barbiturates Screen (Not Detect) Ur Phencyclidine Scrn (Not Detect) Ur Amphetamines Screen (Not Detect) U Benzodiazepines Scrn (Not Detect) Urine Cocaine Screen (Not Detect) U Marijuana (THC) Screen (Not Detect) Imaging Data CT scan - abdomen: Radiologist's impression: [address] [id number] Scan ReportSigned Patient: Suzy Morin#: [id number]: [id number]:[id number]/Sex: 50 / MADM Date: 09/07/20Loc: [address]: Ordering Physician: KAT REGALADO MD Date of Service: 09/07/20 Procedure(s): CT abdomen pelvis wo con Accession Number(s): [id number] cc: KAT REGALADO MD~ EXAMINATION: CT ABDOMEN AND PELVIS WITHOUT CONTRAST CLINICAL INFORMATION: Right flank pain COMPARISON: None TECHNIQUE: Multidetector volumetric imaging was performed from the superior aspect of the liver through the pubic symphysis. Sagittal and coronal reformatted images were obtained on the technologist's workstation. This CT examination was performed using dose optimization techniques as appropriate, variously including the following: *Automated exposure control *Adjustment of mA and/or kV according to patient size (this includes techniques or standardized protocols for targeted exams where dose is matched to indication/reason for exam; i.e. extremities or head) *Use of iterative reconstruction technique DLP: 637 mGy-cm FINDINGS: LUNG BASES: The visualized lung bases are unremarkable. LIVER, GALLBLADDER, AND BILIARY TREE: The liver is normal in size, shape, and attenuation. No focal hepatic lesion or biliary ductal dilatation is present. The gallbladder appears contracted. PANCREAS: Unremarkable. SPLEEN: Unremarkable. ADRENAL GLANDS: Unremarkable. KIDNEYS AND URETERS: The kidneys are normal in size, shape, and attenuation. No hydronephrosis, hydroureter, or obstructing calculi seen. Punctate calculus noted in the lower left kidney. No perinephric stranding. BLADDER: Unremarkable. GASTROINTESTINAL TRACT: The small and large bowel are unremarkable. Moderate amount of stool is present in the colon. The appendix is is not visualized. No free fluid or free air is seen. ABDOMINAL WALL: No significant hernia is appreciated. LYMPH NODES: Normal. VASCULAR: Unremarkable. PELVIC VISCERA: Unremarkable. OSSEOUS STRUCTURES: Mild scattered degenerative changes noted in the spine. CT/CT abdomen pelvis wo con IMPRESSION: No hydronephrosis or obstructing calculus. Punctate left lower pole renal calculus noted. Discharge Plan Discharge Clinical Impression: Pyelonephritis Patient Disposition: Home, Self-Care Instructions: Urinary Tract Infection in Men (ED), Kidney Infection (ED) Additional Instructions: Please follow-up with your primary care physician tomorrow. If you have any worsening or new symptoms, please return to the emergency room or call 911 Prescriptions: New levofloxacin 500 mg tablet 500 mg PO DAILY Qty: 9 RF: 0
[2020-09-07 04:00] VITALS: RESP 15
[2020-09-07] MEDS: levoFLOXacin 500 MG TABLET PO (06:28)
== END 2020-09-07 06:30 | disposition home or self-care (01) ==
PROVIDERS: Emergency Provider Emergency Medicine
DX: N12 Tubulo-interstitial nephritis, not specified as acute or chronic (principal); F14.90 Cocaine use, unspecified, uncomplicated; F11.90 Opioid use, unspecified, uncomplicated; F17.210 Nicotine dependence, cigarettes, uncomplicated; Z86.711 Personal history of pulmonary embolism
CPT/HCPCS: 36415; 74176; 80048; 80307; 81001; 85025; 85379; 99284

== ENCOUNTER 2021-03-17 10:50 | Emergency (ER) | payer MEDICAID, SELFPAY ==
--- NOTE | ~2021-03-17 | XR_ITS ---
EXAMINATION: XR CHEST CLINICAL INFORMATION: Dyspnea. COMPARISON: None TECHNIQUE: Frontal view of the chest was obtained. FINDINGS: No significant abnormality is noted involving the heart, lungs, mediastinum, bony thorax or soft tissues. XR/XR chest 1V IMPRESSION: Unremarkable chest examination.
--- NOTE | ~2021-03-17 | CT_ITS ---
EXAMINATION: CT ANGIOGRAM OF THE CHEST WITH AND WITHOUT CONTRAST (CT PULMONARY ANGIOGRAM FOR PE) CLINICAL INFORMATION: Reason for Exam iv DRUG USER. ELEVATED TROPONIN. pe? PNEUMONIA? COMPARISON: Previous chest CTA October and December 2019 and chest x-ray from earlier the same day TECHNIQUE: Prior to contrast administration, noncontrast localization images were obtained. Subsequently, multidetector volumetric imaging was performed from the thoracic inlet to below the diaphragms following the administration of 65 mL Omnipaque 350 intravenous contrast. No contrast reaction reported Sagittal, coronal, and MIP oblique sagittal reformatted images were obtained on the CT workstation, uploaded to PACS, and reviewed. This CT examination was performed using dose optimization techniques as appropriate, variously including the following: *Automated exposure control *Adjustment of mA and/or kV according to patient size (this includes techniques or standardized protocols for targeted exams where dose is matched to indication/reason for exam; i.e. extremities or head) *Use of iterative reconstruction technique Total exam dose-length product 411 mGy-cm FINDINGS: QUALITY OF STUDY/CONTRAST BOLUS: Limited due to late timing of IV contrast. PULMONARY ARTERIES: No central pulmonary embolism. Evaluation of smaller segmental and subsegmental pulmonary arteries is very limited. THORACIC AORTA: No aneurysm or dissection. LUNG: There is increased groundglass attenuation seen in the posterior segment of the right upper lobe, the right middle lobe near the junction of the major and minor fissure and the superior segment and central right lower lobe suggestive of pneumonitis or small pneumonia. The left lung is clear. PLEURA: No pleural effusion or pneumothorax. MEDIASTINUM: Normal heart size. No pericardial effusion. No hilar or mediastinal lymphadenopathy. No evidence of septal bowing or right heart strain. There is a small left thyroid nodule that measures 7 x 8 mm. No follow-up indicated. This is similar to previous exams. CHEST WALL/AXILLA: No axillary or internal mammary lymphadenopathy. OSSEOUS STRUCTURES: No acute or suspicious osseous abnormality. There are degenerative changes of the thoracic spine. UPPER ABDOMEN: Unremarkable. No reflux of contrast into the hepatic veins to suggest elevated right heart pressures. CT/CT angio chest PE protocol IMPRESSION: Limited evaluation for pulmonary embolism. No central pulmonary embolism. Groundglass attenuation in the right upper middle and lower lobes chest suggestive of pneumonitis or small pneumonia.
[2021-03-17 11:07] VITALS: BP 149/79; PULSE 100; RESP 22; TEMP 36.6; O2SAT 97; BMI 30.1
--- NOTE | 2021-03-17 11:52 | ECG_ITS ---
Test Reason : SOB Blood Pressure : / mmHG Vent. Rate : 089 BPM Atrial Rate : 089 BPM P-R Int : 138 ms QRS Dur : 072 ms QT Int : 348 ms P-R-T Axes : 071 -08 053 degrees QTc Int : 423 ms Normal sinus rhythm Normal ECG When compared with ECG of 31-OCT-2019 02:23, No significant change was found Referred By: Devon Jose Electronically Signed By:DEMI SO
--- NOTE | 2021-03-17 11:59 | ED_ITS ---
HPI - SOB/Dyspnea General Chief Complaint: Dyspnea Stated Complaint: SOB/Asthma Time Seen by Provider: 03/17/21 11:31 Source: patient Mode of arrival: ambulatory Limitations: no limitations History of Present Illness HPI Narrative: 50-year-old male IV drug use and history of PE presents to the ED for 5 days of shortness of breath, coughing, and inspiratory wheezing. Patient denies any leg swelling, calf pain, or shortness of breath on exertion. Patient states legs feel tight. Patient denies any recent long travel. Patient states recent COVID test came back negative. Patient was taking albuterol inhaler and steroid the past 5 days and has not improved. Related Data Previous Rx's Medication Instructions Recorded levofloxacin 500 mg tablet 500 mg PO DAILY #9 tab 09/07/20 amoxicillin 875 mg-potassium 1 tab PO Q12H 10 Days #20 tab 03/17/21 clavulanate 125 mg tablet (Augmentin) azithromycin 250 mg tablet See Rx Instructions .ROUTE 03/17/21 .COMPLEX #6 tab Allergies Allergy/AdvReac Type Severity Reaction Status Date / Time No Known Allergies Allergy Verified 09/07/20 02:22 Review of Systems Verdana 4l Review of Systems: Verdana 4d Shortness of breath, [place] Verdana 4d wheezing, chest tightness Verdana 4d Yes all other systems are reviewed and are negative [facility] Past Medical History Medical History Pulmonary embolism Surgical History History of appendectomy Family History Family History (Updated 03/29/20 @ 09:23 by Salena Rothman) Sister Diabetes Maternal Grandfather Diabetes Social History Social History (Updated 03/29/20 @ 09:23 by Salena Rothman) Alcohol intake: never Patient Tobacco Use Status: Current everyday Tobacco user Years Smoked: 25 Substance Use Type: Crack/Cocaine and Heroin Advance Directives: No Advance Directives Information Provided: No Physical Exam Verdana 4l Vital Signs: Verdana 4d Verdana 4d Vital Signs: Verdana 4d Verdana 4Bd Last Vital Signs Verdana 4d Tube Fitter New 4d Tube Fitter New 4d Temp 97.9 F 03/17/21 11:07 Tube Fitter New 4d Pulse 85 03/17/21 13:12 Tube Fitter New 4d Resp 16 03/17/21 13:12 BP 127/74 03/17/21 13:12 Pulse Ox 98 03/17/21 13:12 BMI result Body Mass Index 30.1 Const: General: cooperative, healthy appearing, comfortable, no acute distress, well developed, alert, awake and Physically active Orientation/consciousness: oriented to person, oriented to place, oriented to time and patient oriented x3 HENMT: Head: Yes normal to inspection, Yes No palpable skull fracture present, Yes normocephalic and Yes atraumatic Eyes: General: appearance normal, both eyes and all related structures Neck: Neck: Yes normal visual inspection, Yes full ROM, Yes no lymphadenopathy, Yes no meningeal signs, Yes trachea midline, Yes supple and No anterior neck swelling Chest: Chest palpation & inspection: normal inspection of the chest and normal palpation of entire chest wall Resp: Effort & Inspection: normal respiratory effort and able to speak in complete sentences Auscultation: wheezes expiratory wheezes Cardio: Jugular venous distension: no JVD Heart sounds: S1 normal heart sound present and S2 normal heart sound present GI: Inspection: Yes normal to inspection and No abdominal wall ecchymosis Palpation (GI): Soft to palpation, not firm, nontender, no guarding and not rigid : General: No CVA tenderness and Yes no CVA tenderness Back/Spine/Pelvis: Back: no CVA tenderness, No CVA tenderness and No back tenderness Skin: General skin exam: no rashes or lesions noted and elasticity normal Neuro: General: oriented to person, oriented to place, oriented to time, patient oriented x3, gait normal and no meningeal signs Extrem: Other: Lower extremities negative for swelling, pitting edema, or calf tenderness for General: Yes normal to inspection and Yes full ROM Psych: Appearance: grossly normal, well kempt and not disheveled Course Course Course Narrative: Chest x-ray was ordered came back normal. SARs COVID swab include RSV and influenza ordered. Due To patient stating pink frothy sputum will do labs including BNP, troponin, EKG and D-dimer. Patient presently not hypoxic Reevaluation(s) Reevaluation #1: Due to elevation in troponin and risk factors for PE patient was still sent for chest CT although D-dimer negative. Dr. Fernandes recommends chest CTA to rule out any pneumonia or lung mass. Patient presently has no chest pain or shortness of breath. Time: 12:13 Reevaluation #2: Chest CTA came back negative for PE but does shows positive pneumonia right side. Repeat troponin did not increase by 50%. Case was discussed with supervising attending Dr. Fernandes who states patient is safe for discharged and can be discharged with oral anibiotics. Patient does not have elevated white blood cell count. Patient vital signs are stable. Patient is not hypoxic. Patient feels better after receiving nebulizer treatment and steroids. Patient presently does not have any chest pain or shortness of breath Time: 16:10 MDM - SOB/Dyspnea MDM Narrative Medical decision making narrative: Pneumonia Lab Data Result diagrams: 03/17/21 12:13 03/17/21 12:13 Labs: Lab Results 03/17/21 03/17/21 03/17/21 Range/Units 12:13 12:13 12:13 WBC 8.5 (4.8-10.8) X10*3/uL RBC 4.54 L (4.60-5.80) X10*6/uL Hgb 13.4 L (14.0-18.0) g/dl Hct 41.0 L (42.0-52.0) % MCV 90.3 (80.0-98.0) fL MCH 29.5 (27.0-33.0) pg MCHC 32.7 (31.0-36.0) g/dl RDW 14.5 (11.0-16.0) % Plt Count 268 (160-400) X10*3/uL MPV 9.3 L (9.4-12.4) fL Immature Gran % (Auto) 0.6 H (0.0-0.4) % Neut % (Auto) 78.5 H (45-73) % Lymph % (Auto) 12.0 L (20-40) % [place] % (Auto) 8.6 (2-11) % Eos % (Auto) 0.2 (0-4) % Baso % (Auto) 0.1 (0-2) % Lymph # (Auto) 1.0 L (1.2-4.9) X10*3/uL [place] # (Auto) 0.7 (0.1-1.2) X10*3/uL Eos # (Auto) 0.0 (0.0-0.4) X10*3/uL Baso # (Auto) 0.0 (0.0-0.2) X10*3/uL Abs Immat Gran (auto) 0.05 H (0.00-0.03) X10*3/uL Absolute Neuts (auto) 6.7 (2.0-8.3) x10*3/uL Absolute Nucleated RBC 0.000 (0.0-0.012) X10*3/uL Nucleated RBC % (auto) 0.0 (0.0-0.2) /100WBC PT (9.9-13.0) SEC INR (0.9-1.1) APTT (24.1-38.0) SEC D-Dimer High Sensitivty NG/ML Sodium 144 (135-145) mmol/L Potassium 4.4 (3.3-5.1) mmol/L Chloride 106 (96-108) mmol/L Carbon Dioxide 28 (22-29) mmol/L Anion Gap 14 (12-20) BUN 12 (9-16) mg/dL Creatinine 0.84 (0.5-1.4) mg/dL Estim Creat Clear Calc 124.5 Estimated GFR > 60 Random Glucose 128 H (60-115) mg/dL Calcium 9.6 D (8.4-10.2) mg/dL Total Bilirubin 0.3 (0.0-1.0) mg/dL AST 22 (5-37) U/L ALT 17 (0-40) U/L Alkaline Phosphatase 70 (39-117) U/L Troponin I High Sens 42.2 H (<3.5-35.0) ng/L B-Natriuretic Peptide 121 H (<100) pg/mL Total Protein 6.9 (6.5-8.0) g/dL Albumin 3.9 (3.5-5.0) g/dL Influenza Type A (PCR) (Negative) Influenza Type B (PCR) (Negative) RSV RNA Qual (PCR) (Negative) SARS-CoV-2 RNA (RT-PCR) (Negative) 03/17/21 03/17/21 03/17/21 Range/Units 12:13 12:14 12:21 WBC (4.8-10.8) X10*3/uL RBC (4.60-5.80) X10*6/uL Hgb (14.0-18.0) g/dl Hct (42.0-52.0) % MCV (80.0-98.0) fL MCH (27.0-33.0) pg MCHC (31.0-36.0) g/dl RDW (11.0-16.0) % Plt Count (160-400) X10*3/uL MPV (9.4-12.4) fL Immature Gran % (Auto) (0.0-0.4) % Neut % (Auto) (45-73) % Lymph % (Auto) (20-40) % [place] % (Auto) (2-11) % Eos % (Auto) (0-4) % Baso % (Auto) (0-2) % Lymph # (Auto) (1.2-4.9) X10*3/uL [place] # (Auto) (0.1-1.2) X10*3/uL Eos # (Auto) (0.0-0.4) X10*3/uL Baso # (Auto) (0.0-0.2) X10*3/uL Abs Immat Gran (auto) (0.00-0.03) X10*3/uL Absolute Neuts (auto) (2.0-8.3) x10*3/uL Absolute Nucleated RBC (0.0-0.012) X10*3/uL Nucleated RBC % (auto) (0.0-0.2) /100WBC PT 10.3 (9.9-13.0) SEC INR 0.9 (0.9-1.1) APTT 24.9 (24.1-38.0) SEC D-Dimer High Sensitivty < 150 NG/ML Sodium (135-145) mmol/L Potassium (3.3-5.1) mmol/L Chloride (96-108) mmol/L Carbon Dioxide (22-29) mmol/L Anion Gap (12-20) BUN (9-16) mg/dL Creatinine (0.5-1.4) mg/dL Estim Creat Clear Calc Estimated GFR Random Glucose (60-115) mg/dL Calcium (8.4-10.2) mg/dL Total Bilirubin (0.0-1.0) mg/dL AST (5-37) U/L ALT (0-40) U/L Alkaline Phosphatase (39-117) U/L Troponin I High Sens (<3.5-35.0) ng/L B-Natriuretic Peptide (<100) pg/mL Total Protein (6.5-8.0) g/dL Albumin (3.5-5.0) g/dL Influenza Type A (PCR) NEGATIVE (Negative) Influenza Type B (PCR) NEGATIVE (Negative) RSV RNA Qual (PCR) NEGATIVE (Negative) SARS-CoV-2 RNA (RT-PCR) NEGATIVE (Negative) 03/17/21 Range/Units 15:26 WBC (4.8-10.8) X10*3/uL RBC (4.60-5.80) X10*6/uL Hgb (14.0-18.0) g/dl Hct (42.0-52.0) % MCV (80.0-98.0) fL MCH (27.0-33.0) pg MCHC (31.0-36.0) g/dl RDW (11.0-16.0) % Plt Count (160-400) X10*3/uL MPV (9.4-12.4) fL Immature Gran % (Auto) (0.0-0.4) % Neut % (Auto) (45-73) % Lymph % (Auto) (20-40) % [place] % (Auto) (2-11) % Eos % (Auto) (0-4) % Baso % (Auto) (0-2) % Lymph # (Auto) (1.2-4.9) X10*3/uL [place] # (Auto) (0.1-1.2) X10*3/uL Eos # (Auto) (0.0-0.4) X10*3/uL Baso # (Auto) (0.0-0.2) X10*3/uL Abs Immat Gran (auto) (0.00-0.03) X10*3/uL Absolute Neuts (auto) (2.0-8.3) x10*3/uL Absolute Nucleated RBC (0.0-0.012) X10*3/uL Nucleated RBC % (auto) (0.0-0.2) /100WBC PT (9.9-13.0) SEC INR (0.9-1.1) APTT (24.1-38.0) SEC D-Dimer High Sensitivty NG/ML Sodium (135-145) mmol/L Potassium (3.3-5.1) mmol/L Chloride (96-108) mmol/L Carbon Dioxide (22-29) mmol/L Anion Gap (12-20) BUN (9-16) mg/dL Creatinine (0.5-1.4) mg/dL Estim Creat Clear Calc Estimated GFR Random Glucose (60-115) mg/dL Calcium (8.4-10.2) mg/dL Total Bilirubin (0.0-1.0) mg/dL AST (5-37) U/L ALT (0-40) U/L Alkaline Phosphatase (39-117) U/L Troponin I High Sens 40.0 H (<3.5-35.0) ng/L B-Natriuretic Peptide (<100) pg/mL Total Protein (6.5-8.0) g/dL Albumin (3.5-5.0) g/dL Influenza Type A (PCR) (Negative) Influenza Type B (PCR) (Negative) RSV RNA Qual (PCR) (Negative) SARS-CoV-2 RNA (RT-PCR) (Negative) ECG Data Interpretation: Normal sinus rhythm. Ventricular rate 89. Parents of 138. Molly 72. QTC 423. Negative STEMI Discharge Plan Discharge Clinical Impression: Community acquired pneumonia Patient Disposition: Home, Self-Care Instructions: Community Acquired Pneumonia (DC) Additional Instructions: Your chest CT came back positive for pneumonia. You will be discharged with oral antibiotics. Return to the ED immediately for shortness of breath, coughing up blood, intractable fever, weakness, chills, leg swelling, calf pain, or any other concerning symptoms. Please follow-up with primary care provider. Prescriptions: New azithromycin 250 mg tablet See Rx Instructions .ROUTE .COMPLEX Qty: 6 0RF Rx Instructions: For 250 mg dose pack: take 500 mg today (day 1), then 250 mg for 4 days (days 2-5) amoxicillin-pot clavulanate [Augmentin] 875-125 mg tablet 1 tab PO Q12H 10 Days Qty: 20 0RF No Action levofloxacin 500 mg tablet 500 mg PO DAILY Qty: 9 0RF Stand Alone Forms: Work/School Release Discharge Date/Time: 03/17/21 16:43 Print Language: [place]
[2021-03-17] MEDS: Albuterol/Iprat 2.5/0.5MG 3 ML AMPUL.NEB INHALE (12:00)
[2021-03-17 12:01] VITALS: PULSE 100; RESP 22; O2SAT 97
[2021-03-17] MEDS: predniSONE 20 MG TABLET 60 MG PO (12:15)
[2021-03-17 12:26] LABS: MANUAL DIFF FLAG NO
[2021-03-17 12:30] LABS: Basophils Percent Auto 0.1 % (0-2); Eosinophils Percent Auto 0.2 % (0-4); Hemoglobin 13.4 g/dl (14.0-18.0); Imm Gran Abs Auto 0.05 X10*3/uL (0.00-0.03); Imm Gran Pct Auto 0.6 % (0.0-0.4); Mean Corpuscular HGB Conc 32.7 g/dl (31.0-36.0); Mean Corpuscular Hemoglobin 29.5 pg (27.0-33.0); Mean Corpuscular Volume 90.3 fL (80.0-98.0); Mean Platelet Volume 9.3 fL (9.4-12.4); Monocytes Absolute Auto 0.7 X10*3/uL (0.1-1.2); Monocytes Percent Auto 8.6 % (2-11); Neutrophils Absolute Auto 6.7 x10*3/uL (2.0-8.3); Neutrophils Percent Auto 78.5 % (45-73); Platelet Count 268 X10*3/uL (160-400); Red Blood Count 4.54 X10*6/uL (4.60-5.80); Red Cell Distribution Width 14.5 % (11.0-16.0); White Blood Count 8.5 X10*3/uL (4.8-10.8)
[2021-03-17 12:34] LABS: INTERNATIONAL NORM RATIO 0.9 (0.9-1.1); Prothrombin Time 10.3 SEC (9.9-13.0)
[2021-03-17 12:37] LABS: D Dimer High Sensitivity < 150 NG/ML
[2021-03-17 12:37] LABS: Partial Thromboplastin Time 24.9 SEC (24.1-38.0)
[2021-03-17 12:49] LABS: Alanine Aminotransferase 17 U/L (0-40); Albumin Level 3.9 g/dL (3.5-5.0); Alkaline Phosphatase 70 U/L (39-117); Anion Gap 14 (12-20); Aspartate Amino Transferase 22 U/L (5-37); Bilirubin Total 0.3 mg/dL (0.0-1.0); Blood Urea Nitrogen 12 mg/dL (9-16); Calcium 9.6 mg/dL (8.4-10.2); Carbon Dioxide 28 mmol/L (22-29); Chloride 106 mmol/L (96-108); Creatinine Clr Calc Pharmacy 124.5; Estimated Glomerular Filt Rate > 60; Glucose Random 128 mg/dL (60-115); Potassium 4.4 mmol/L (3.3-5.1); Sodium 144 mmol/L (135-145); Total Protein 6.9 g/dL (6.5-8.0)
[2021-03-17 12:54] LABS: B Type Natriuretic Peptide 121 pg/mL (<100); Troponin-I High Sensitivity 42.2 ng/L (<3.5-35.0)
[2021-03-17 13:05] LABS: Influenza A PCR NEGATIVE (Negative); Influenza B PCR NEGATIVE (Negative); Resp Syncy Virus RNA Qual PCR NEGATIVE (Negative); SARS COV2 PCR INHOUSE NEGATIVE (Negative)
[2021-03-17 13:12] VITALS: BP 127/74; PULSE 85; RESP 16; O2SAT 98
[2021-03-17] MEDS: iohexoL 350 MG/ML 75 ML INFUS..BTL 65 ML IV (14:19)
== END 2021-03-17 16:43 | disposition home or self-care (01) ==
PROVIDERS: Physician Assistant; Emergency Provider Emergency Medicine Emergency Medical Services
DX: J18.9 Pneumonia, unspecified organism (principal); R06.02 Shortness of breath; Z20.822 Contact with and (suspected) exposure to COVID-19; F17.200 Nicotine dependence, unspecified, uncomplicated; Z86.711 Personal history of pulmonary embolism
CPT/HCPCS: 0241U; 36415; 71045; 71275; 80053; 83880; 84484; 85025; 85379; 85610; 85730; 93005; 99284; Q9967

== ENCOUNTER → 2022-01-29 08:03 | Outpatient (BNVA) | payer MEDICAID, SELFPAY | PROVIDERS: PCP Nurse Practitioner Primary Care; Referring Provider Nurse Practitioner Primary Care; Visit Provider Internal Medicine Rheumatology | DX: M79.641 Pain in right hand (principal); M25.511 Pain in right shoulder; M25.512 Pain in left shoulder; M25.561 Pain in right knee; M25.562 Pain in left knee; M25.50 Pain in unspecified joint; F11.90 Opioid use, unspecified, uncomplicated; Z87.828 Personal history of other (healed) physical injury and trauma; Z86.19 Personal history of other infectious and parasitic diseases | CPT/HCPCS: 99202 ==

== ENCOUNTER 2022-02-03 09:45 | Outpatient (REF) | payer MEDICAID, SELFPAY ==
--- NOTE | ~2022-02-03 | XR_ITS ---
EXAMINATION: BILATERAL SHOULDER, BILATERAL KNEE AND RIGHT HAND. CLINICAL INFORMATION: Pain. COMPARISON: None TECHNIQUE: 4 views each shoulder. 3 views each knee and 3 views right hand. FINDINGS: Right hand: The PIP, DIP and MCP joint spaces are maintained normal. No bony erosive changes or periarticular spurring. The intercarpal and radioulnar carpal joint spaces are maintained as well. No fracture or dislocation seen. Left knee: There is mild reduction in the medial compartment joint space with no spurring. No loose bodies, joint effusion or bony erosive changes. Right knee: There is mild loss of medial compartment joint space without acute fracture, dislocation or bony erosive changes. There is no spurring or joint effusion. Left shoulder: The glenohumeral and AC joint space is reduced. No visible acute fracture, dislocation or subluxation seen. The soft tissues are normal. Right shoulder: There is mild reduction in right AC and glenohumeral joint space. No loose bodies, bony erosive changes or periarticular spurring. The soft tissues are normal. XR/XR shoulder LT min 2V IMPRESSION: 1. Unremarkable right hand exam. 2. Mild degenerative changes medial compartment both knees without spurring or joint effusion 3. There is mild degenerative changes bilateral shoulder joints without spurring, loose bodies or joint effusion.
--- NOTE | ~2022-02-03 | XR_ITS ---
EXAMINATION: BILATERAL SHOULDER, BILATERAL KNEE AND RIGHT HAND. CLINICAL INFORMATION: Pain. COMPARISON: None TECHNIQUE: 4 views each shoulder. 3 views each knee and 3 views right hand. FINDINGS: Right hand: The PIP, DIP and MCP joint spaces are maintained normal. No bony erosive changes or periarticular spurring. The intercarpal and radioulnar carpal joint spaces are maintained as well. No fracture or dislocation seen. Left knee: There is mild reduction in the medial compartment joint space with no spurring. No loose bodies, joint effusion or bony erosive changes. Right knee: There is mild loss of medial compartment joint space without acute fracture, dislocation or bony erosive changes. There is no spurring or joint effusion. Left shoulder: The glenohumeral and AC joint space is reduced. No visible acute fracture, dislocation or subluxation seen. The soft tissues are normal. Right shoulder: There is mild reduction in right AC and glenohumeral joint space. No loose bodies, bony erosive changes or periarticular spurring. The soft tissues are normal. XR/XR shoulder RT min 2V IMPRESSION: 1. Unremarkable right hand exam. 2. Mild degenerative changes medial compartment both knees without spurring or joint effusion 3. There is mild degenerative changes bilateral shoulder joints without spurring, loose bodies or joint effusion.
--- NOTE | ~2022-02-03 | XR_ITS ---
EXAMINATION: BILATERAL SHOULDER, BILATERAL KNEE AND RIGHT HAND. CLINICAL INFORMATION: Pain. COMPARISON: None TECHNIQUE: 4 views each shoulder. 3 views each knee and 3 views right hand. FINDINGS: Right hand: The PIP, DIP and MCP joint spaces are maintained normal. No bony erosive changes or periarticular spurring. The intercarpal and radioulnar carpal joint spaces are maintained as well. No fracture or dislocation seen. Left knee: There is mild reduction in the medial compartment joint space with no spurring. No loose bodies, joint effusion or bony erosive changes. Right knee: There is mild loss of medial compartment joint space without acute fracture, dislocation or bony erosive changes. There is no spurring or joint effusion. Left shoulder: The glenohumeral and AC joint space is reduced. No visible acute fracture, dislocation or subluxation seen. The soft tissues are normal. Right shoulder: There is mild reduction in right AC and glenohumeral joint space. No loose bodies, bony erosive changes or periarticular spurring. The soft tissues are normal. XR/XR hand RT min 3V IMPRESSION: 1. Unremarkable right hand exam. 2. Mild degenerative changes medial compartment both knees without spurring or joint effusion 3. There is mild degenerative changes bilateral shoulder joints without spurring, loose bodies or joint effusion.
--- NOTE | ~2022-02-03 | XR_ITS ---
EXAMINATION: BILATERAL SHOULDER, BILATERAL KNEE AND RIGHT HAND. CLINICAL INFORMATION: Pain. COMPARISON: None TECHNIQUE: 4 views each shoulder. 3 views each knee and 3 views right hand. FINDINGS: Right hand: The PIP, DIP and MCP joint spaces are maintained normal. No bony erosive changes or periarticular spurring. The intercarpal and radioulnar carpal joint spaces are maintained as well. No fracture or dislocation seen. Left knee: There is mild reduction in the medial compartment joint space with no spurring. No loose bodies, joint effusion or bony erosive changes. Right knee: There is mild loss of medial compartment joint space without acute fracture, dislocation or bony erosive changes. There is no spurring or joint effusion. Left shoulder: The glenohumeral and AC joint space is reduced. No visible acute fracture, dislocation or subluxation seen. The soft tissues are normal. Right shoulder: There is mild reduction in right AC and glenohumeral joint space. No loose bodies, bony erosive changes or periarticular spurring. The soft tissues are normal. XR/XR knee RT 3V IMPRESSION: 1. Unremarkable right hand exam. 2. Mild degenerative changes medial compartment both knees without spurring or joint effusion 3. There is mild degenerative changes bilateral shoulder joints without spurring, loose bodies or joint effusion.
--- NOTE | ~2022-02-03 | XR_ITS ---
EXAMINATION: BILATERAL SHOULDER, BILATERAL KNEE AND RIGHT HAND. CLINICAL INFORMATION: Pain. COMPARISON: None TECHNIQUE: 4 views each shoulder. 3 views each knee and 3 views right hand. FINDINGS: Right hand: The PIP, DIP and MCP joint spaces are maintained normal. No bony erosive changes or periarticular spurring. The intercarpal and radioulnar carpal joint spaces are maintained as well. No fracture or dislocation seen. Left knee: There is mild reduction in the medial compartment joint space with no spurring. No loose bodies, joint effusion or bony erosive changes. Right knee: There is mild loss of medial compartment joint space without acute fracture, dislocation or bony erosive changes. There is no spurring or joint effusion. Left shoulder: The glenohumeral and AC joint space is reduced. No visible acute fracture, dislocation or subluxation seen. The soft tissues are normal. Right shoulder: There is mild reduction in right AC and glenohumeral joint space. No loose bodies, bony erosive changes or periarticular spurring. The soft tissues are normal. XR/XR knee LT 3V IMPRESSION: 1. Unremarkable right hand exam. 2. Mild degenerative changes medial compartment both knees without spurring or joint effusion 3. There is mild degenerative changes bilateral shoulder joints without spurring, loose bodies or joint effusion.
[2022-02-03 10:09] LABS: MANUAL DIFF FLAG NO
[2022-02-03 10:36] LABS: Basophils Percent Auto 0.4 % (0-2); Eosinophils Absolute Auto 0.1 X10*3/uL (0.0-0.4); Eosinophils Percent Auto 2.4 % (0-4); Hematocrit 40.1 % (42.0-52.0); Hemoglobin 13.7 g/dl (14.0-18.0); Imm Gran Abs Auto 0.02 X10*3/uL (0.00-0.03); Imm Gran Pct Auto 0.4 % (0.0-0.4); Lymphocytes Absolute Auto 1.2 X10*3/uL (1.2-4.9); Lymphocytes Percent Auto 21.8 % (20-40); Mean Corpuscular HGB Conc 34.2 g/dl (31.0-36.0); Mean Corpuscular Hemoglobin 29.7 pg (27.0-33.0); Mean Platelet Volume 8.6 fL (9.4-12.4); Monocytes Absolute Auto 0.6 X10*3/uL (0.1-1.2); Monocytes Percent Auto 11.5 % (2-11); Neutrophils Absolute Auto 3.4 x10*3/uL (2.0-8.3); Neutrophils Percent Auto 63.5 % (45-73); Platelet Count 317 X10*3/uL (160-400); Red Blood Count 4.61 X10*6/uL (4.60-5.80); Red Cell Distribution Width 13.2 % (11.0-16.0); White Blood Count 5.3 X10*3/uL (4.8-10.8)
[2022-02-03 11:19] LABS: Erythrocyte Sedimentation Rate 12 MM/HR (0-15)
[2022-02-03 14:04] LABS: Alanine Aminotransferase 19 U/L (0-40); Albumin Level 4.3 g/dL (3.5-5.0); Alkaline Phosphatase 93 U/L (39-117); Anion Gap 14 (12-20); Aspartate Amino Transferase 22 U/L (5-37); Bilirubin Total 0.2 mg/dL (0.0-1.0); Blood Urea Nitrogen 18 mg/dL (9-16); C Reactive Protein 0.66 mg/dL (< or = 0.50); Calcium 9.1 mg/dL (8.4-10.2); Carbon Dioxide 25 mmol/L (22-29); Chloride 105 mmol/L (96-108); Estimated Glomerular Filt Rate > 60; Glucose Random 90 mg/dL (60-115); Potassium 4.3 mmol/L (3.3-5.1); Rheumatoid Factor < 13.0 IU/mL (<15.0); Sodium 140 mmol/L (135-145); Total Protein 7.2 g/dL (6.5-8.0)
== END 2022-02-03 09:46 | disposition home or self-care (01) ==
LOC: HO.XRAY 09:45
PROVIDERS: Visit Provider Internal Medicine Rheumatology
DX: M25.511 Pain in right shoulder (principal); M25.512 Pain in left shoulder; M25.561 Pain in right knee; M25.562 Pain in left knee; M79.641 Pain in right hand
CPT/HCPCS: 36415; 73030; 73130; 73562; 80053; 85025; 85652; 86140; 86431

== ENCOUNTER 2022-02-11 22:48 | Emergency (ER) | payer MEDICAID, SELFPAY ==
--- NOTE | ~2022-02-11 | XR_ITS ---
EXAMINATION: XR CHEST CLINICAL INFORMATION: Dyspnea COMPARISON: CTA from 03/17/2021 TECHNIQUE: Frontal view of the chest was obtained. FINDINGS: No significant abnormality is noted involving the heart, lungs, mediastinum, bony thorax or soft tissues. XR/XR chest 1V IMPRESSION: Unremarkable examination.
[2022-02-11 23:00] VITALS: BP 141/96; PULSE 101; RESP 20; TEMP 36.6; O2SAT 95; BMI 33.1
--- NOTE | 2022-02-11 23:05 | ECG_ITS ---
Test Reason : DYSPNEA Blood Pressure : / mmHG Vent. Rate : 093 BPM Atrial Rate : 093 BPM P-R Int : 152 ms QRS Dur : 096 ms QT Int : 364 ms P-R-T Axes : 035 -34 059 degrees QTc Int : 452 ms Normal sinus rhythm Left axis deviation Cannot rule out Anterior infarct , age undetermined Abnormal ECG When compared with ECG of 17-MAR-2021 12:25, QRS duration has increased Referred By: Generic ED Physician Electronically Signed By:ROMY KEY MD
[2022-02-11 23:47] LABS: MANUAL DIFF FLAG NO
[2022-02-11 23:48] LABS: Basophils Percent Auto 0.3 % (0-2); Eosinophils Absolute Auto 0.2 X10*3/uL (0.0-0.4); Eosinophils Percent Auto 2.7 % (0-4); Hematocrit 40.4 % (42.0-52.0); Hemoglobin 13.2 g/dl (14.0-18.0); Imm Gran Abs Auto 0.02 X10*3/uL (0.00-0.03); Imm Gran Pct Auto 0.3 % (0.0-0.4); Lymphocytes Absolute Auto 1.4 X10*3/uL (1.2-4.9); Lymphocytes Percent Auto 23.6 % (20-40); Mean Corpuscular HGB Conc 32.7 g/dl (31.0-36.0); Mean Corpuscular Hemoglobin 29.3 pg (27.0-33.0); Mean Corpuscular Volume 89.6 fL (80.0-98.0); Mean Platelet Volume 8.5 fL (9.4-12.4); Monocytes Absolute Auto 0.5 X10*3/uL (0.1-1.2); Monocytes Percent Auto 9.1 % (2-11); Neutrophils Absolute Auto 3.7 x10*3/uL (2.0-8.3); Platelet Count 272 X10*3/uL (160-400); Red Blood Count 4.51 X10*6/uL (4.60-5.80); Red Cell Distribution Width 13.3 % (11.0-16.0); White Blood Count 5.8 X10*3/uL (4.8-10.8)
[2022-02-12] LABS: D Dimer High Sensitivity < 150 NG/ML
[2022-02-12 00:02] LABS: Anion Gap 12 (12-20); Blood Urea Nitrogen 20 mg/dL (9-16); Carbon Dioxide 25 mmol/L (22-29); Chloride 107 mmol/L (96-108); Creatinine Clr Calc Pharmacy 113.8; Estimated Glomerular Filt Rate > 60; Glucose Random 106 mg/dL (60-115); Potassium 4.5 mmol/L (3.3-5.1); Sodium 139 mmol/L (135-145)
[2022-02-12 00:08] LABS: Troponin-I High Sensitivity 4.5 ng/L (<3.5-35.0)
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
[2022-02-12] MEDS: Ketorolac Tromethamine 30 MG/ML VIAL IM (01:07)
--- NOTE | 2022-02-12 01:11 | PC.NURSE ---
pt medicated at time of discharge. pt reports 9/10 pain. pt ambulatory at time of discharge. pt given discharge packet and work note. pt verbalized understanding of discharge plan
== END 2022-02-12 01:13 | disposition home or self-care (01) ==
PROVIDERS: Emergency Provider Emergency Medicine
DX: M54.50 Low back pain, unspecified (principal); M54.6 Pain in thoracic spine; R06.02 Shortness of breath; Z79.899 Other long term (current) drug therapy
CPT/HCPCS: 36415; 71045; 80048; 84484; 85025; 85379; 93005; 96372; 99284; J1885

== ENCOUNTER 2023-08-03 10:04 | Emergency (ER) | payer MEDICAID, SELFPAY ==
[2023-08-03 10:13] VITALS: BP 153/88; BP 169/79; PULSE 102; PULSE 108; RESP 19; TEMP 36.2; O2SAT 95; BMI 30.3
--- NOTE | 2023-08-03 10:19 | PC.NURSE ---
crispin [place] via EMS from the roadside, per EMS patient admitted to sniffing one bag of heroin today, laila called 911 due to patient nodding off on the sidewalk. police arrived on scene and patient was alert and oriented, agreeable to coming to ER for evaluation, patient states to this RN that he was recently released from [facility] and has started using again since he has been out, states he does not use a lot, maybe 1 or 2 bags a day patient denies wanting detox at this time. per EMS patient initially somnolent however arrives alert and oriented for this RN, speaking in clear and complete sentences. patient provided water upon request, VSS at this time, changed into appropriate hospital attire by fibreglass laminator. awaiting MD bailey at this time
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
[2023-08-03 11:12] VITALS: BP 136/61; PULSE 104; RESP 19; TEMP 36.6; O2SAT 95
[2023-08-03 11:17] VITALS: BP 136/61; PULSE 104; RESP 19; TEMP 36.6; O2SAT 95
== END 2023-08-03 11:18 | disposition home or self-care (01) ==
PROVIDERS: Emergency Provider Emergency Medicine
DX: F19.10 Other psychoactive substance abuse, uncomplicated (principal); F17.210 Nicotine dependence, cigarettes, uncomplicated
CPT/HCPCS: 99282

== ENCOUNTER 2023-08-06 20:09 | Emergency (ER) | payer MEDICAID, SELFPAY ==
[2023-08-06 20:23] VITALS: BP 130/60; PULSE 90; O2SAT 99; BMI 31.7
--- NOTE | 2023-08-06 21:17 | MHC.EDTECH ---
Unable to take vital signs. Patient very restless, vomiting. RN aware
[2023-08-06 21:33] VITALS: BP 158/64; PULSE 100; RESP 16; O2SAT 96
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
[2023-08-06 22:02] VITALS: BP 158/64
[2023-08-06] MEDS: LORazepam 1 MG TABLET 2 MG PO (22:02)
[2023-08-06] MEDS: cloNIDine HCL 0.2 MG TABLET PO (22:02)
[2023-08-06] MEDS: Ondansetron ODT 4 MG TAB.RAPDIS TRANSLINGU (22:02)
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
[2023-08-07] VITALS (7 sets, daily range): BP systolic 126–174; BP diastolic 47–90; PULSE 78–95; RESP 16–20; TEMP 36.4–37.3; O2SAT 93–99
[2023-08-07] MEDS: LORazepam 2 MG/ML VIAL IM (00:17)
[2023-08-07] MEDS: Prochlorperazine Edisylate 10 MG/2 ML VIAL IM (00:17)
--- NOTE | 2023-08-07 00:20 | PC.NURSE ---
at this time, pt visibly uncomfortable in bed, thrashing around, unable to keep on gown, nasuea and vomiting. pt unable to keep PO medications down. pt offered IM medications, pt gave the okay for medications a this time. pt room cleaned at this time for comfort. vital signs obtained.
--- NOTE | 2023-08-07 02:21 | PC.NURSE ---
pt allowed to sleep at this time, respirations even and unlabored. no acute distress noted, pt calm.
--- NOTE | 2023-08-07 06:21 | PC.NURSE ---
at this time, at bedside, pt requesting wanting detox and that he would like to speak to care team. pt denies si/hi at this time but reports wanting help .
[2023-08-07 06:57] LABS: MANUAL DIFF FLAG NO
[2023-08-07 07:05] LABS: Alanine Aminotransferase 24 U/L (0-40); Albumin Level 3.7 g/dL (3.5-5.0); Alkaline Phosphatase 65 U/L (39-117); Anion Gap 12 (12-20); Aspartate Amino Transferase 37 U/L (5-37); Bilirubin Total 0.6 mg/dL (0.0-1.0); Blood Urea Nitrogen 10 mg/dL (9-16); Calcium 8.8 mg/dL (8.4-10.2); Carbon Dioxide 30 mmol/L (22-29); Chloride 107 mmol/L (96-108); Creatinine Clr Calc Pharmacy 134.7; Estimated Glomerular Filt Rate > 60; Ethanol < 10 mg/dL; Glucose Random 99 mg/dL (60-115); Magnesium 2.2 mg/dL (1.6-2.6); Potassium 3.6 mmol/L (3.3-5.1); Sodium 145 mmol/L (135-145); Total Protein 6.6 g/dL (6.5-8.0)
[2023-08-07 07:05] LABS: Basophils Percent Auto 0.3 % (0-2); Eosinophils Absolute Auto 0.2 X10*3/uL (0.0-0.4); Eosinophils Percent Auto 2.9 % (0-4); Hematocrit 37.4 % (42.0-52.0); Hemoglobin 12.4 g/dl (14.0-18.0); Imm Gran Abs Auto 0.02 X10*3/uL (0.00-0.03); Imm Gran Pct Auto 0.3 % (0.0-0.4); Lymphocytes Absolute Auto 1.2 X10*3/uL (1.2-4.9); Lymphocytes Percent Auto 19.1 % (20-40); Mean Corpuscular HGB Conc 33.2 g/dl (31.0-36.0); Mean Corpuscular Hemoglobin 29.7 pg (27.0-33.0); Mean Corpuscular Volume 89.5 fL (80.0-98.0); Mean Platelet Volume 8.5 fL (9.4-12.4); Monocytes Absolute Auto 0.6 X10*3/uL (0.1-1.2); Monocytes Percent Auto 9.4 % (2-11); Neutrophils Absolute Auto 4.2 x10*3/uL (2.0-8.3); Platelet Count 267 X10*3/uL (160-400); Red Blood Count 4.18 X10*6/uL (4.60-5.80); Red Cell Distribution Width 13.4 % (11.0-16.0); White Blood Count 6.2 X10*3/uL (4.8-10.8)
[2023-08-07 07:37] LABS: COVID-19 Test Negative (Negative); IDNOW Serial# 6674DD1D
[2023-08-07 16:36] LABS: Amphetamine Screen Urine Not Detected (Not Detect); Barbiturates, Urine Not Detected (Not Detect); Benzodiazepines Screen Urine Not Detected (Not Detect); Buprenorphine Scr Not Detected (Not Detect); Cannabinoid Screen Urine Not Detected (Not Detect); Cocaine Screen Urine POSITIVE (Not Detect); Fentanyl, urine POSITIVE (Not Detect); Methadone Screen, Urine Not Detected (Not Detect); Opiate Screen Urine POSITIVE (Not Detect); Oxycodone Screen Urine Not Detected (Not Detect); Phencyclidine Screen Urine Not Detected (Not Detect)
--- NOTE | 2023-08-07 19:22 | PC.NURSE ---
This RN assumed pt care @ 1900. Pt resting in bed, no signs of acute distress. Plan of care ongoing.
[2023-08-08] VITALS: BP 166/91; PULSE 98; RESP 12; TEMP 36.7; O2SAT 94
--- NOTE | 2023-08-08 02:29 | PC.NURSE ---
Pt requested and given water. Plan of care ongoing.
[2023-08-08 04:00] VITALS: BP 161/85; PULSE 93; RESP 12; TEMP 36.4; O2SAT 97
[2023-08-08 06:29] VITALS: BP 157/86; PULSE 93; RESP 18; TEMP 36.9; O2SAT 97
--- NOTE | 2023-08-08 09:54 | PHA.MEDREC ---
Pharmacy Consult ? Medication Reconciliation Pharmacy has completed the medication reconciliation. patient takes no medications at home. He did have prescriptions from 08/02 at [facility] however the only one patient reports starting is the Suboxone 8-2mg BID. He states he last took it the night before he came here. Unable to confirm if medication was picked up at [facility]. If patient is still here tomorrow, will have MR ingram confirm tack picker with them.
--- NOTE | 2023-08-08 11:17 | MHC.CARE ---
CARE Team consult placed for detox . CARE Team met with Pt who reported he was interested in ATS placement. CARE Team and Pt discussed Pt calling ATS facilities for treatment. Pt declined interest in calling himself for admission. CARE Team discussed local resources. Pt expressed interested in wanting to be discharged to [facility] [place] Pt and t/w discussed harm reduction. T/w will ask attending ED provider to discharge Pt with narcan. Pt provided with community resource information and local crisis information.
[2023-08-08 12:00] VITALS: BP 150/88; PULSE 88; RESP 18; TEMP 36.8; O2SAT 96
--- NOTE | 2023-08-12 10:22 | MHC.RECOVRN ---
Attempted to call pt for post overdose follow up. Phone number listed is not in service.
== END 2023-08-08 13:02 | disposition home or self-care (01) ==
PROVIDERS: Emergency Provider Internal Medicine
DX: T40.1X1A Poisoning by heroin, accidental (unintentional), initial encounter (principal); Y92.9 Unspecified place or not applicable; F17.210 Nicotine dependence, cigarettes, uncomplicated; F11.10 Opioid abuse, uncomplicated; F14.10 Cocaine abuse, uncomplicated; Z11.52 Encounter for screening for COVID-19; Z79.899 Other long term (current) drug therapy
CPT/HCPCS: 80053; 80307; 83735; 85025; 87635; 96372; 99285; J0737; J2060

== ENCOUNTER 2023-08-19 01:01 | Emergency (ER) | payer MEDICAID, SELFPAY ==
[2023-08-19 01:04] VITALS: BP 155/85; PULSE 122; RESP 18; TEMP 37.1; O2SAT 94; BMI 28.0
[2023-08-19 01:31] LABS: MANUAL DIFF FLAG NO
[2023-08-19 01:32] LABS: Basophils Percent Auto 0.2 % (0-2); Eosinophils Absolute Auto 0.1 X10*3/uL (0.0-0.4); Eosinophils Percent Auto 0.6 % (0-4); Hematocrit 33.4 % (42.0-52.0); Hemoglobin 11.3 g/dl (14.0-18.0); Imm Gran Abs Auto 0.03 X10*3/uL (0.00-0.03); Imm Gran Pct Auto 0.3 % (0.0-0.4); Lymphocytes Absolute Auto 1.1 X10*3/uL (1.2-4.9); Lymphocytes Percent Auto 9.8 % (20-40); Mean Corpuscular HGB Conc 33.8 g/dl (31.0-36.0); Mean Corpuscular Hemoglobin 30.1 pg (27.0-33.0); Mean Corpuscular Volume 88.8 fL (80.0-98.0); Mean Platelet Volume 8.6 fL (9.4-12.4); Monocytes Percent Auto 8.4 % (2-11); Neutrophils Absolute Auto 9.4 x10*3/uL (2.0-8.3); Neutrophils Percent Auto 80.7 % (45-73); Platelet Count 396 X10*3/uL (160-400); Red Blood Count 3.76 X10*6/uL (4.60-5.80); Red Cell Distribution Width 13.1 % (11.0-16.0); White Blood Count 11.6 X10*3/uL (4.8-10.8)
[2023-08-19 01:48] LABS: Lactic Acid 0.7 mmol/L (0.5-2.0)
[2023-08-19 01:58] LABS: Alanine Aminotransferase 21 U/L (0-40); Albumin Level 3.8 g/dL (3.5-5.0); Alkaline Phosphatase 73 U/L (39-117); Anion Gap 14 (12-20); Aspartate Amino Transferase 28 U/L (5-37); Bilirubin Total 0.3 mg/dL (0.0-1.0); Blood Urea Nitrogen 10 mg/dL (9-16); Calcium 9.1 mg/dL (8.4-10.2); Carbon Dioxide 26 mmol/L (22-29); Chloride 104 mmol/L (96-108); Creatinine Clr Calc Pharmacy 129.4; Estimated Glomerular Filt Rate > 60; Glucose Random 121 mg/dL (60-115); Potassium 3.5 mmol/L (3.3-5.1); Sodium 140 mmol/L (135-145); Total Protein 7.4 g/dL (6.5-8.0)
== END 2023-08-19 05:03 | disposition left against medical advice (07) ==
PROVIDERS: Emergency Provider Emergency Medicine
DX: M79.601 Pain in right arm (principal); Z79.899 Other long term (current) drug therapy
CPT/HCPCS: 36415; 80053; 83605; 85025; 87040; 87077; 87186; 87205; 99281

== ENCOUNTER 2023-08-25 14:46 | Inpatient (IN) | payer MEDICAID, SELFPAY ==
--- NOTE | ~2023-08-25 | XR_ITS ---
EXAMINATION: XR ELBOW, RIGHT CLINICAL INFORMATION: Elbow pain COMPARISON: None available. TECHNIQUE: AP, lateral, and oblique views of the right elbow. FINDINGS: No fracture, dislocation or destructive process. No erosive change. No joint effusion. XR/XR elbow RT 2V IMPRESSION: Unremarkable study.
[2023-08-25 15:12] VITALS: BP 153/89; PULSE 97; RESP 18; TEMP 36.2; O2SAT 99; BMI 28.5
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
[2023-08-25 17:02] LABS: MANUAL DIFF FLAG NO
[2023-08-25 17:06] LABS: Basophils Percent Auto 0.5 % (0-2); Eosinophils Absolute Auto 0.3 X10*3/uL (0.0-0.4); Eosinophils Percent Auto 4.4 % (0-4); Hematocrit 34.6 % (42.0-52.0); Hemoglobin 11.5 g/dl (14.0-18.0); Imm Gran Abs Auto 0.02 X10*3/uL (0.00-0.03); Imm Gran Pct Auto 0.3 % (0.0-0.4); Lymphocytes Absolute Auto 1.3 X10*3/uL (1.2-4.9); Lymphocytes Percent Auto 22.7 % (20-40); Mean Corpuscular HGB Conc 33.2 g/dl (31.0-36.0); Mean Corpuscular Volume 90.3 fL (80.0-98.0); Mean Platelet Volume 8.4 fL (9.4-12.4); Monocytes Absolute Auto 0.5 X10*3/uL (0.1-1.2); Monocytes Percent Auto 8.5 % (2-11); Neutrophils Absolute Auto 3.7 x10*3/uL (2.0-8.3); Neutrophils Percent Auto 63.6 % (45-73); Platelet Count 409 X10*3/uL (160-400); Red Blood Count 3.83 X10*6/uL (4.60-5.80); Red Cell Distribution Width 13.2 % (11.0-16.0); White Blood Count 5.9 X10*3/uL (4.8-10.8)
[2023-08-25 17:23] LABS: Alanine Aminotransferase 16 U/L (0-40); Albumin Level 3.7 g/dL (3.5-5.0); Alkaline Phosphatase 78 U/L (39-117); Anion Gap 13 (12-20); Aspartate Amino Transferase 21 U/L (5-37); Bilirubin Direct < 0.2 mg/dL (0.0-0.5); Bilirubin Total 0.1 mg/dL (0.0-1.0); Blood Urea Nitrogen 15 mg/dL (9-16); C Reactive Protein 1.33 mg/dL (< or = 0.50); Calcium 9.2 mg/dL (8.4-10.2); Carbon Dioxide 25 mmol/L (22-29); Chloride 104 mmol/L (96-108); Creatinine Clr Calc Pharmacy 128.1; Estimated Glomerular Filt Rate > 60; Glucose Random 133 mg/dL (60-115); Sodium 138 mmol/L (135-145); Total Protein 7.6 g/dL (6.5-8.0)
[2023-08-25 17:32] LABS: Troponin-I High Sensitivity < 2.7 ng/L (<3.5-35.0)
[2023-08-25 18:04] LABS: Erythrocyte Sedimentation Rate 66 MM/HR (0-15)
[2023-08-25 22:15] VITALS: BP 128/73; PULSE 89; RESP 18; TEMP 36.8; O2SAT 97
[2023-08-26] MEDS: 0.9 % Sodium Chloride 1,000 ML 999 ML IV (00:04)
[2023-08-26] MEDS: vancomycin/NS 2,000 MG/500 ML PLAST..BAG 250 MG IV (00:04)
[2023-08-26 00:28] VITALS: BP 155/88; PULSE 93; RESP 18; TEMP 36.9; O2SAT 98
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
--- NOTE | 2023-08-26 01:44 | PC.NURSE ---
Report to Radha SALAZAR in overflow for continued care.
--- NOTE | 2023-08-26 03:07 | PC.NURSE ---
Pt arrived to overflow from main ED with a INFRASTRUCTURE DIRECTOR at 0230 hours. Pt is awake, alert, and oriented X 4. Is calm, cooperative, and appropriate with staff. Pt oriented to room and call light was placed within reach. Skin is warm, pink, and dry. Pt requested something to eat and was given crackers and peanut butter upon request with some juice. Pt verbailzed feeling tired, but denied any other needs. Pending a med/surg bed, will continue to monitor for changes.
--- NOTE | 2023-08-26 03:52 | PC.NURSE ---
Pt is sleeping in semi-fowlers position in bed, appears comfortable. Easy to arouse with verbal stimuli. No acute distress observed and skin is warm, pink, and dry. Pt changes positions in bed independently as desired. Bed at lowest position and call light is within reach. Pt is pending admission to med/surg. Will continue to monitor for changes.
[2023-08-26 05:25] LABS: MANUAL DIFF FLAG NO
[2023-08-26 05:28] LABS: Basophils Percent Auto 0.7 % (0-2); Eosinophils Absolute Auto 0.3 X10*3/uL (0.0-0.4); Eosinophils Percent Auto 6.1 % (0-4); Hematocrit 33.2 % (42.0-52.0); Imm Gran Abs Auto 0.01 X10*3/uL (0.00-0.03); Imm Gran Pct Auto 0.2 % (0.0-0.4); Lymphocytes Absolute Auto 1.3 X10*3/uL (1.2-4.9); Lymphocytes Percent Auto 29.6 % (20-40); Mean Corpuscular HGB Conc 33.1 g/dl (31.0-36.0); Mean Corpuscular Hemoglobin 29.8 pg (27.0-33.0); Mean Platelet Volume 8.4 fL (9.4-12.4); Monocytes Absolute Auto 0.4 X10*3/uL (0.1-1.2); Monocytes Percent Auto 8.8 % (2-11); Neutrophils Absolute Auto 2.4 x10*3/uL (2.0-8.3); Neutrophils Percent Auto 54.6 % (45-73); Platelet Count 370 X10*3/uL (160-400); Red Blood Count 3.69 X10*6/uL (4.60-5.80); Red Cell Distribution Width 13.2 % (11.0-16.0); White Blood Count 4.4 X10*3/uL (4.8-10.8)
[2023-08-26 05:47] LABS: Anion Gap 10 (12-20); Blood Urea Nitrogen 11 mg/dL (9-16); Calcium 8.3 mg/dL (8.4-10.2); Carbon Dioxide 26 mmol/L (22-29); Chloride 107 mmol/L (96-108); Creatinine Clr Calc Pharmacy 140.9; Estimated Glomerular Filt Rate > 60; Glucose Random 103 mg/dL (60-115); Potassium 4.3 mmol/L (3.3-5.1); Sodium 139 mmol/L (135-145)
[2023-08-26 05:51] LABS: C Reactive Protein 0.87 mg/dL (< or = 0.50)
[2023-08-26 06:28] VITALS: BP 160/75; PULSE 77; RESP 19; TEMP 36.6; O2SAT 98
--- NOTE | 2023-08-26 06:30 | PC.NURSE ---
Pt is resting in bed, appear comfortable, and no acute distress is observed. Easily arousable with verbal stimuli and responds to staff appropriately. Indenependent with toileting as desired. No verbalized needs at this time. Pt changes position in bed as desired. Pending admission to med/surg. Will continue to monitor for changes.
--- NOTE | 2023-08-26 07:00 | CA_ITS ---
Transthoracic Echocardiogram Patient (Last, First, Middle): Kyle Morin, Gender: Male Date of : 1970 Age: 53 Procedure Date: 08/26/2023 Procedure Type: Transthoracic Echocardiogram Location: ER Height: 177.8 cm Weight: 89.81 kg BSA: 2.08 m2 Heart Rate: 80 bpm BP: 160 / 75 mmHg Booster Station Operator: FRANKO Referring MD: Stacey Patel NP Symptoms: MRSA bacteremia Study Quality: Adequate ECG Rhythm: Sinus Conclusions: - Normal left ventricular size, thickness, systolic function, and wall motion. The visually estimated ejection fraction is between 60-65%. Diastolic function is normal for age. - No obvious valvular pathology. Findings Left Ventricle Normal left ventricular size, thickness, systolic function, and wall motion. The visually estimated ejection fraction is between 60-65%. Diastolic function is normal for age. Right Ventricle Normal right ventricular cavity size and systolic function. Atria The left atrium is normal in size. The right atrium is mildly dilated. Aortic Valve Normal aortic valve structure and function. There is no aortic valve stenosis. There is no aortic valve regurgitation. Mitral Valve Normal mitral valve structure and function. There is no mitral valve regurgitation. There is no mitral valve stenosis. Pulmonic Valve The pulmonic valve is normal. There is no pulmonic valve regurgitation. Tricuspid Valve Normal tricuspid valve structure. There is no tricuspid valve regurgitation. Tricuspid regurgitation envelope is inadequate for calculation of right ventricular systolic pressure. Normal right atrial pressure. Great Vessels All visible segments of the aorta are normal in size. The visualized portions of the pulmonary artery and branches are normal. Venous The inferior vena cava is normal in size and collapses greater than 50% with inspiration. Pericardium/Pleural There is no evidence of pericardial effusion. Prior Study Comparison No prior study available for comparison. Recommendations, Care & Conclusions Consider a TREVOR if clinically appropriate. Measurements 2D Linear Measurements IVSd: 0.93 0.6-0.9/0.6-1.0 cm LVIDd: 4.45 3.9-5.3/4.2-5.9 cm LVIDd Index: 2.14 2.4-3.2/2.2-3.1 cm/m2 LVIDs: 2.96 2.0-3.6 cm LVPWd: 0.72 0.7-1.1 cm LA Diam: 3.50 2.7-3.8/3.0-4.0 cm LAIDs Index: 1.68 1.5-2.3 cm/m2 LV Mass: 143.72 67-162/88-224 g LV Mass Index: 69.10 43-95/49-115 g/m2 LVOT Diam: 2.30 3.0+(-)1.3 cm 2D Systolic Function EF 4C: 60.30 >55% EF 2C: 66.90 >55% EF BiP: 63.00 >55% Mitral Valve MV Pk E: 1.28 MV PK A: 0.71 MV Decel Time: 179.00 E/A: 1.80 E'Lateral: 13.90 E'Medial: 11.60 E/E' Med: 11.00 E/E' Lat: 9.20 PHT: 52.00 MVA PHT: 4.23 Decel [place]row: 7.15 Aortic Valve AoV Pk Nelson: 1.80 AoV Pk Grad: 13.00 ETHAN: 3.74 LVOT LVOT Pk Nelson: 1.52 LVOT Mn Nelson: 1.10 LVOT VTI: 0.32 LVOT Pk Grad: 9.00 LVOT Mn Grad: 5.00 LVOT Diam: 2.30 LVOT Area: 4.15 Diastolic Function MV Pk E: 1.28 MV Pk A: 0.71 E/A: 1.80 E'Medial: 11.60 E/E' Med: 11.00 E' Laterial: 13.90 E/E' Lat: 9.20 Right Ventricle TAPSE (mm): 30.10 TVS' Nelson: 18.30 Tricuspid Valve RA Press: 3.00 Great Vessels Aorta Sinus of Valsalva: 3.60 2.0-3.5 cm Ao Asc: 3.10 2.1-3.4 cm Pulmonary Veins Pulm Vein S/D 1.20 Pulmonary Valve PV Pk Nelson: 1.18 Peak PV Grad: 6.00 Updated in Other Vendor System with Status of Final Al Lazaro MD electronically signed on 08/26/2023 3:57:52 PM with status of Final
--- NOTE | 2023-08-26 08:13 | PHA.PROG ---
Addendum entered by Dorothy Shin casper 08/26/23 08:16: DOSING REGIMEN: 1500 mg Q12H Original Note: Admission Date/Time: August 26, 2023 00:51 Indication: Bacteremia Weight in k kg Adjusted body weight in Kg: [place] body weight in Kg: Obesity Dosing Indication % IBW: BMI 28.5 Serum Creatinine - Last 168 Hours 08/25/23 08/26/23 16:50 05:07 Creatinine 0.77 0.70 Estimated CrCl and GFR - Last 168 Hours 08/25/23 08/26/23 16:50 05:07 Estim Creat Clear Calc 128.1 140.9 Estimated GFR > 60 > 60 Vancomycin Loading Dose: 2000 x1 Current Vancomycin Dosing Regimen: 1000 Q8H Vancomycin Monitoring using AUC goal of 400 - 600 range with trough as surrogate marker: 553 Date and Time for next Vancomycin Level to be drawn: 08/26 @0600 Pharmacist Comments on Vancomycin Plan: Renal function good, to be monitored for renal fx stability and adjusting per troughs. Vancomycin dosing will take advantage of [employer] as a clinical decision support tool that uses Bayesian modeling to calculate individual patient's pharmacokinetic parameters and forecast the patient's drug concentration time course with the target goal AUC 24 range of 400 - 600 mg/L/hr.
[2023-08-26] MEDS: 0.9 % Sodium Chloride Flush 3 ML SYRINGE IVFLUSH ×3 (08:32→23:20)
--- NOTE | 2023-08-26 08:32 | PC.NURSE ---
patient resting quietly in room, even and unlabored respirations. offered patient his suboxone to which patient stated I don't want it right now, I'll take it later. offering no complaints at this time.
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
--- NOTE | 2023-08-26 09:51 | MHC.CM.PN ---
PT SLEEPING ON APPROACH, HE WAKES TO ANSWER QUESTIONS, BUT QUICKLY FALLS BACK ASLEEP HE DID CONFIRM HE LIVES WITH HIS S/O AND IS INDEPENDENT HE DENIES USE OF DME HE DOES NOT HAVE A HCP PCP AT [facility] DCP: HOME NO SERVICES VS WITH [employer] PT SAYS HE HAS A RIDE
--- NOTE | 2023-08-26 09:55 | PHA.MEDREC ---
Pharmacy Consult ? Medication Reconciliation Pharmacy has completed the medication reconciliation. Confirmed medications with spouse over the phone and patient. The spouse was able to confirm all his meds but his Suboxone dosing and directions. I spoke with patient in room and he was groggy but patient was able to confirm that he is taking the Suboxone 8mg-2mg 1 under the tongue twice a day. Patient also states that he has not taken his medication in a few days, since Wednesday or Wednesday at least
[2023-08-26] MEDS: vancomycin HCL 1,500 MG in 0.9 % Sodium Chloride 500 ML 333.33 MG IV ×2 (12:41→23:20)
--- NOTE | 2023-08-26 12:55 | PM.EVENT ---
Event Note Date of Service: 08/30/23 Event Note: Kyle Morin is a 53 y/o man admitted with: MRSA bacteremia pos from 08/19/23>1/2 No signs or symptoms of sepsis. Repeat blood cultures pending IV Vancomycin echo ID consult Right elbow cellulitis Orthopedic surgery following> low suspicion for abscess or bursitis, will f/u tomorrow continue abx for now Heroin and cocaine abuse Suboxone. DVT prophylaxis: Low risk. Ambulation attending Dr. Stoddard Code status: Full Patient will need hospitalization for at least 2 midnights to make sure he has not been developing real bacteremia, IV antibiotic therapy was provided in the emergency department. Time Spent With Patient Time: Total time managing care of this patient today ____ minutes.
--- NOTE | 2023-08-26 14:11 | PC.NURSE ---
resting quietly with even and unlabored respirations. antibiotics have infused. plan for NPO after midnight per ortho consult.
[2023-08-26 15:57] VITALS: BP 128/71; PULSE 68; RESP 16; TEMP 37.2; O2SAT 96
[2023-08-26 17:26] LABS: MRSA Nasal PCR POSITIVE (Negative); SA Nasal PCR POSITIVE (Negative)
[2023-08-26 19:09] VITALS: BP 151/68; PULSE 72; RESP 16; TEMP 37.2; O2SAT 97
[2023-08-26 19:47] VITALS: BP 148/79; PULSE 78; RESP 18; TEMP 36.2; O2SAT 97
[2023-08-26 23:43] VITALS: BMI 30.1
[2023-08-27 03:30] VITALS: BP 143/76; PULSE 75; RESP 16; TEMP 36.2; O2SAT 96
[2023-08-27 06:44] LABS: Creatinine Clr Calc Pharmacy 151.1; Estimated Glomerular Filt Rate > 60
[2023-08-27 07:54] VITALS: BP 169/86; PULSE 74; RESP 16; TEMP 36.9; O2SAT 98
[2023-08-27] MEDS: 0.9 % Sodium Chloride Flush 3 ML SYRINGE IVFLUSH ×3 (08:40→19:59)
--- NOTE | 2023-08-27 09:39 | P.PNIM_ITS ---
Subjective Subjective Date of Service: 08/27/23 Interval History: Seen and examined this AM denies any complaints states orthopedics saw him and no plans for surgery thus far Review of Systems Negative except HPI/interval history. Physical Exam 2 Vital Signs: Vital Signs: Last Vital Signs Temp 98.4 F 08/27/23 07:54 Pulse 74 08/27/23 07:54 Resp 16 08/27/23 07:54 BP 169/86 H 08/27/23 07:54 Pulse Ox 98 08/27/23 07:54 O2 Del Method Room Air 08/27/23 07:54 BMI result Body Mass Index 30.1 Const: Other: General - no acute distress, appears comfortable Cardiovascular - regular rate and rhythm, S1-S2 Lungs - normal respiratory effort, clear to auscultation bilaterally, no wheezing Abdomen - soft, nontender, no rebound or guarding Extremities - R elbow with healing wound; some erythema without tenderness to palpation; full ROM without pain Neuro - awake and alert, no focal deficits Objective Data Active Medications Acetaminophen (Acetaminophen 325 Mg Tablet) 975 mg PO Q6H PRN PRN Reason: Pain, Mild (Pain Scale 1-3), fever or headache Buprenorphine/Naloxone (Buprenorphine/Naloxone 8/2 Mg Film) 1 film SUBLINGUAL BID [facility] Last Admin: 08/27/23 08:41 Dose: Not Given Documented By: ELICEO Non-Admin Reason: Patient Refused Vancomycin HCl 1,500 mg/ (Sodium Chloride) 500 mls @ 333.333 mls/hr IV Q12H [facility] Last Infusion: 08/27/23 00:51 Dose: Infused Documented By: VIBHA Pharmacy Consult (Consult Rx Vancomycin Dosing) 1 each MISCELLANE DAILY PRN PRN Reason: Consult order Sodium Chloride (0.9 % Sodium Chloride Flush 3 Ml Syringe) 3 ml IVFLUSH QSHIFT [facility] Last Admin: 08/27/23 08:40 Dose: 3 ml Documented By: ELICEO Labs 08/26/23 05:07 08/27/23 05:27 Labs: Laboratory Results - last 24 hr 08/26/23 08/27/23 15:56 05:27 Estim Creat Clear Calc 151.1 Estimated GFR > 60 Nasal Screen MRSA (PCR) POSITIVE A Nasal S. aureus Screen POSITIVE A Nasal MRSA/S.aureus Interp SEE NOTE Microbiology Microbiology Results: Microbiology 08/26/23 00:29 Gram Stain - Final Thigh Right Routine Culture - Preliminary No growth to date. 08/25/23 16:50 Blood Culture - Preliminary Blood - Venous No growth after 24 hours. 08/25/23 16:50 Blood Culture - Preliminary Blood - Venous No growth after 24 hours. Assessment and Plan (1) Olecranon bursitis of left elbow: Status: Acute (2) MRSA bacteremia: Status: Acute Plan 53 yo M with a history of polysubstance abuse, on chronic suboxone, who presented [place] [facility] for positive blood cultures obtain on August 18. 1. MRSA bacteremia 1/2 bottles initially repeat negative @ 24 hours continue with IV vancomcyin, await ID input re: antibiotics and further work up (echo, ect) 2. Right elbow cellulitis / ? bursitis / ? abcess appears to be healing evaluated by ortho 08/25 with suspicion of abscess / septic bursitis -- recs to continue antibioics will await f/u today 3. Chronic opiate dependence continue suboxone Full Code DVT pptx -- lovenox Reason for continued hospitalization: requires IV antibiotics for MRSA bacteremia, needs negative repeat cultures and ID input to determine further treatment. Quality Stroke Does the patient have a stroke diagnosis?: No VTE Prior VTE?: No VTE Risk Level:: Medical - low VTE Device Contraindication: Treatment Not Indicated VTE Drug Contraindication: Treatment Not Indicated
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
[2023-08-27 11:24] LABS: Vancomycin Random 11.4 mcg/mL (15-20)
--- NOTE | 2023-08-27 11:36 | HE.PHANOTE ---
RE: VANCO DOSING Trough came back as 11.4. Due to indication (bacteremia) and good renal function, dose is increased to 1250 mg q8h, starting @1200 on 08/27/23. Next trough is scheduled for 08/28/23 @1000.
[2023-08-27] MEDS: vancomycin HCL 1,250 MG in 0.9 % Sodium Chloride 250 ML 166.67 MG IV ×2 (12:01→19:59)
--- NOTE | 2023-08-27 14:21 | MHC.CM.PN ---
Per MD rounds patient not medically cleared for dc. Awaiting ID eval. May require manager of environmental services IV abx. Patient is aware if IV abx are ordered, will require SNF placement. [facility] is able to offer a bed. Patient completed HCP naming his mother Larissa as HCA. CM will continue to follow.
[2023-08-27 15:16] VITALS: BP 137/80; PULSE 72; RESP 18; TEMP 36.8; O2SAT 97
--- NOTE | 2023-08-27 17:24 | P.PNOP_ITS ---
Subjective Subjective Date of Service: 08/27/23 <ADEOLA Mayorga Last Filed: 08/27/23 17:31> 08/28/23 <Rita Bee PA-C - Last Filed: 08/28/23 09:51> Interval history: Patient is a 53-year-old male who was admitted to the hospital for treatment of redness and swelling in his R elbow. Patient reports that he is feeling well today, and is not experiencing any pain at this time. Reports no drainage from open areas. No other acute concerns. <ADEOLA Mayorga Last Filed: 08/27/23 17:31> Physical Exam Vital Signs: Vital Signs: Last Vital Signs Temp 98.3 F 08/27/23 15:16 Pulse 72 08/27/23 15:16 Resp 18 08/27/23 15:16 BP 137/80 08/27/23 15:16 Pulse Ox 97 08/27/23 15:16 O2 Del Method Room Air 08/27/23 15:16 BMI result Body Mass Index 30.1 <ADEOLA Mayorga Last Filed: 08/27/23 17:31> Extrem: Other: Patient is alert, oriented, and in no acute distress. Pain: Patient reports no tenderness to palpation over the right olecranon bursa, or an ywhere over the right elbow ROM: Range of motion of the right elbow full and intact, painless Skin: Noted erythema of the extensor surface of the right elbow, extending into the proximal forearm, improved from yesterday Multiple small open areas also noted on the extensor surface of the elbow and proximal forearm, with no active drainage Small area of fluctuance noted over the olecranon, nontender to palpation, not actively draining Psych: Appears grossly normal Affect normal Attitude cooperative <ADEOLA Mayorga Last Filed: 08/27/23 17:31> Procedures Date of Service Date of Service: 08/27/23 <ADEOLA Mayorga Last Filed: 08/27/23 17:31> 08/28/23 <Rita Bee PA-C - Last Filed: 08/28/23 09:51> Progress Note: A&P Assessment and plan (1) Cellulitis of right elbow: Status: Acute <ADEOLA Mayorga Last Filed: 08/27/23 17:31> Assessment and Plan: 1. Cellulitis of R elbow Continue IV abx per medicine Low index of suspicion for abscess or septic bursitis at this time Patient will be re-evaluated tomorrow AM <ADEOLA Mayorga - Last Filed: 08/27/23 17:31> Time Spent With Patient Time: Total time managing care of this patient today ____ minutes. <ADEOLA Mayorga - Last Filed: 08/27/23 17:31> Quality Stroke Does the patient have a stroke diagnosis?: No <ADEOLA Mayorga - Last Filed: 08/27/23 17:31> VTE Prior VTE?: No <ADEOLA Mayorga - Last Filed: 08/27/23 17:31> VTE Risk Level:: Medical - low <ADEOLA Mayorga - Last Filed: 08/27/23 17:31> VTE Device Contraindication: Treatment Not Indicated <ADEOLA Mayorga - Last Filed: 08/27/23 17:31> VTE Drug Contraindication: Treatment Not Indicated <ADEOLA Mayorga - Last Filed: 08/27/23 17:31>
[2023-08-27 19:28] VITALS: BP 122/72; PULSE 81; RESP 18; TEMP 36.4; O2SAT 94
[2023-08-28 03:49] VITALS: BP 130/68; PULSE 78; RESP 16; TEMP 36.8; O2SAT 93
[2023-08-28] MEDS: vancomycin HCL 1,250 MG in 0.9 % Sodium Chloride 250 ML 166.67 MG IV (03:54)
[2023-08-28 07:50] LABS: Creatinine Clr Calc Pharmacy 144.6; Estimated Glomerular Filt Rate > 60
[2023-08-28 08:00] VITALS: BP 128/64; PULSE 74; RESP 16; TEMP 36.9; O2SAT 98
[2023-08-28] MEDS: 0.9 % Sodium Chloride Flush 3 ML SYRINGE IVFLUSH ×2 (08:37→16:42)
[2023-08-28 10:31] LABS: Vancomycin Random 21.1 mcg/mL (15-20)
--- NOTE | 2023-08-28 10:38 | HE.PHANOTE ---
RE [facility] Patients level came back this morning at 21.1. Decreased dose to 1000 mg Q8H. next dose was due for 1200, pushed back dose to start at 1700. NExt level 08/28 @1500. Predicted AUC 483
--- NOTE | 2023-08-28 10:53 | HO.PM.IMPN ---
Subjective Subjective Date of Service: 08/28/23 Interval History: seen and examined no complaints d/w him re: antibiotics and possibility of [place] [facility] with IV Review of Systems Negative except HPI/interval history. Physical Exam Vital Signs: Vital Signs: Last Vital Signs Temp 98.5 F 08/28/23 08:00 Pulse 74 08/28/23 08:00 Resp 16 08/28/23 08:00 BP 128/64 08/28/23 08:00 Pulse Ox 98 08/28/23 08:00 O2 Del Method Room Air 08/28/23 08:00 BMI result Body Mass Index 30.1 Const: Other: General - no acute distress, appears comfortable Cardiovascular - regular rate and rhythm, S1-S2 Lungs - normal respiratory effort, clear to auscultation bilaterally, no wheezing Abdomen - soft, nontender, no rebound or guarding Extremities - R elbow with healing wound; some erythema without tenderness to palpation; full ROM without pain; unchanged Neuro - awake and alert, no focal deficits Objective Data Active Medications Acetaminophen (Acetaminophen 325 Mg Tablet) 975 mg PO Q6H PRN PRN Reason: Pain, Mild (Pain Scale 1-3), fever or headache Buprenorphine/Naloxone (Buprenorphine/Naloxone 8/2 Mg Film) 1 film SUBLINGUAL BID [facility] Last Admin: 08/28/23 08:37 Dose: Not Given Documented By: ARIADNA Non-Admin Reason: Patient Refused Vancomycin HCl 1,000 mg/ (Sodium Chloride) 270 mls @ 270 mls/hr IV Q8H [facility] Pharmacy Consult (Consult Rx Vancomycin Dosing) 1 each MISCELLANE DAILY PRN PRN Reason: Consult order Sodium Chloride (0.9 % Sodium Chloride Flush 3 Ml Syringe) 3 ml IVFLUSH QSHIFT [facility] Last Admin: 08/28/23 08:37 Dose: 3 ml Documented By: ARIADNA Labs 08/26/23 05:07 08/28/23 05:44 Labs: Laboratory Results - last 24 hr 08/27/23 08/28/23 08/28/23 10:42 05:44 09:58 Estim Creat Clear Calc 144.6 Estimated GFR > 60 Random Vancomycin 11.4 L 21.1 H Microbiology Microbiology Results: Microbiology 08/26/23 00:29 Gram Stain - Final Thigh Right Routine Culture - Final No growth after 2 days 08/25/23 16:50 Blood Culture - Preliminary Blood - Venous No growth after 48 hours. 08/25/23 16:50 Blood Culture - Preliminary Blood - Venous No growth after 48 hours. Assessment and Plan (1) Olecranon bursitis of left elbow: Status: Acute (2) MRSA bacteremia: Status: Acute Plan 53 yo M with a history of polysubstance abuse, on chronic suboxone, who presented to [facility] for positive blood cultures obtain on August 18. 1. MRSA bacteremia 1/2 bottles initially repeat negative @ 48 hours continue vancomcyin -- suspected will need [place] [facility], but the patient does not appear to be too interested in this; will await ID input 2. Right elbow cellulitis / ? bursitis / ? abcess appears to be healing no surgical intervention planned ortho on the case 3. Chronic opiate dependence continue suboxone Full Code DVT pptx -- lovenox Reason for continued hospitalization: requires IV antibiotics for MRSA bacteremia, needs negative repeat cultures and ID input to determine further treatment. Quality Stroke Does the patient have a stroke diagnosis?: No VTE Prior VTE?: No VTE Risk Level:: Medical - low VTE Device Contraindication: Treatment Not Indicated VTE Drug Contraindication: Treatment Not Indicated
--- NOTE | 2023-08-28 11:41 | PM.PNORT ---
Subjective Subjective Date of Service: 08/28/23 Interval history: Patient is a 53-year-old male who was admitted to the hospital for treatment of redness and swelling in his R elbow. Patient reports that he is feeling well today, and is not experiencing any pain at this time. Reports no drainage from open areas. No other acute concerns. Physical Exam Vital Signs: Vital Signs: Last Vital Signs Temp 98.5 F 08/28/23 08:00 Pulse 74 08/28/23 08:00 Resp 16 08/28/23 08:00 BP 128/64 08/28/23 08:00 Pulse Ox 98 08/28/23 08:00 O2 Del Method Room Air 08/28/23 08:00 BMI result Body Mass Index 30.1 Extrem: Other: Patient is alert, oriented, and in no acute distress. Pain: Patient reports no tenderness to palpation over the right olecranon bursa, or anywhere over the right elbow ROM: Range of motion of the right elbow full and intact, painless Skin: Noted erythema of the extensor surface of the right elbow, extending into the proximal forearm, improved from yesterday Multiple small open areas also noted on the extensor surface of the elbow and proximal forearm, with no active drainage No area of fluctuance noted today,, nontender to palpation, not actively draining Psych: Appears grossly normal Affect normal Attitude cooperative Procedures Date of Service Date of Service: 08/28/23 Progress Note: A&P Assessment and plan (1) Cellulitis of right elbow: Status: Acute Plan 1. Cellulitis right elbow Patient is doing well at this time Continue IV antibiotics per Medicine Very low index of suspicion for a septic olecranon bursitis No further orthopedic intervention indicated at this time Please feel free to reach out with any further questions Patient can follow-up with us p.r.n. with any acute concerns Time Spent With Patient Time: Total time managing care of this patient today ____ minutes. Quality Stroke Does the patient have a stroke diagnosis?: No VTE Prior VTE?: No VTE Risk Level:: Medical - low VTE Device Contraindication: Treatment Not Indicated VTE Drug Contraindication: Treatment Not Indicated
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
[2023-08-28 15:13] VITALS: BP 147/73; PULSE 75; RESP 18; TEMP 36; O2SAT 98
[2023-08-28] MEDS: vancomycin HCL 1,000 MG in 0.9 % Sodium Chloride 250 ML 270 MG IV (16:43)
[2023-08-28 19:34] VITALS: BP 147/78; PULSE 88; RESP 18; TEMP 36.3; O2SAT 95
[2023-08-29] VITALS: BP 145/67; PULSE 105; RESP 16; TEMP 36.7; O2SAT 96
[2023-08-29] MEDS: 0.9 % Sodium Chloride Flush 3 ML SYRINGE IVFLUSH ×2 (01:15→08:50)
[2023-08-29] MEDS: vancomycin HCL 1,000 MG in 0.9 % Sodium Chloride 250 ML 270 MG IV ×2 (01:44→08:50)
[2023-08-29 04:00] VITALS: BP 132/74; PULSE 73; RESP 16; TEMP 36.4; O2SAT 96
[2023-08-29 07:45] VITALS: BP 148/69; PULSE 95; RESP 16; TEMP 36.8; O2SAT 97
--- NOTE | 2023-08-29 09:30 | P.PNIM_ITS ---
Subjective Subjective Date of Service: 08/29/23 Interval History: seen and examined Discussed with him about needing IV antibiotics and going to rehab, at this time he is unsure Review of Systems Negative except HPI/interval history. Physical Exam 2 Vital Signs: Vital Signs: Last Vital Signs Temp 98.2 F 08/29/23 07:45 Pulse 95 08/29/23 07:45 Resp 16 08/29/23 07:45 BP 148/69 H 08/29/23 07:45 Pulse Ox 97 08/29/23 07:45 O2 Del Method Room Air 08/29/23 07:45 BMI result Body Mass Index 30.1 Const: Other: General - no acute distress, appears comfortable Cardiovascular - regular rate and rhythm, S1-S2 Lungs - normal respiratory effort, clear to auscultation bilaterally, no wheezing Abdomen - soft, nontender, no rebound or guarding Extremities - R elbow with healing wound; some erythema without tenderness to palpation; full ROM without pain; unchanged Neuro - awake and alert, no focal deficits Objective Data Active Medications Acetaminophen (Acetaminophen 325 Mg Tablet) 975 mg PO Q6H PRN PRN Reason: Pain, Mild (Pain Scale 1-3), fever or headache Buprenorphine/Naloxone (Buprenorphine/Naloxone 8/2 Mg Film) 1 film SUBLINGUAL BID [facility] Last Admin: 08/29/23 09:03 Dose: Not Given Documented By: ARIADNA Non-Admin Reason: Patient Refused Vancomycin HCl 1,000 mg/ (Sodium Chloride) 270 mls @ 270 mls/hr IV Q8H [facility] Last Admin: 08/29/23 08:50 Dose: 270 mls/hr Documented By: ARIADNA Pharmacy Consult (Consult Rx Vancomycin Dosing) 1 each MISCELLANE DAILY PRN PRN Reason: Consult order Sodium Chloride (0.9 % Sodium Chloride Flush 3 Ml Syringe) 3 ml IVFLUSH QSHIFT [facility] Last Admin: 08/29/23 08:50 Dose: 3 ml Documented By: ARIADNA Labs 08/26/23 05:07 08/28/23 05:44 Labs: Laboratory Results - last 24 hr 08/28/23 09:58 Random Vancomycin 21.1 H Microbiology Microbiology Results: Microbiology 08/26/23 00:29 Gram Stain - Final Thigh Right Routine Culture - Final No growth after 2 days Assessment and Plan (1) Olecranon bursitis of left elbow: Status: Acute (2) MRSA bacteremia: Status: Acute Plan 53 yo M with a history of polysubstance abuse, on chronic suboxone, who presented to [facility] for positive blood cultures obtain on August 18. 1. MRSA bacteremia 1/2 bottles initially (August 18) repeat negative @ 48 hours ID input appreciated, recommendations to treat with IV vancomycin. The patient at this time is not sure if he would comply with those recommendations. We will continue vancomycin for the time being 2. Right elbow cellulitis / ? bursitis / ? abscess appears to be healing no surgical intervention planned ortho on the case 3. Chronic opiate dependence continue suboxone Full Code DVT pptx -- lovenox Reason for continued hospitalization: requires IV antibiotics for MRSA bacteremia Quality Stroke Does the patient have a stroke diagnosis?: No VTE Prior VTE?: No VTE Risk Level:: Medical - low VTE Device Contraindication: Treatment Not Indicated VTE Drug Contraindication: Treatment Not Indicated
--- NOTE | 2023-08-29 16:01 | PC.NURSE ---
Pt left AMA . Dr Stoddard notified . 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 Pt signed AMA paper
--- NOTE | 2023-08-29 16:50 | PM.EVENT ---
Event Note Date of Service: 08/29/23 Event Note: Was informed by the RN that the patient wanted to leave against medical advice. Had discussed with the patient earlier about his planned treatment course which included IV antibiotics x 4 weeks total. Had discussed with him the risks of not treating occult bacteremia, specffically MRSA. Informed him the risks included, but not limited to: on going bacteremia, sepsis, endocardidits, multi-organ failure and even . Discussed with him about the risk of non treating his elbow infection appropriate, which include possible limb loss. At the time, he expressed understanding these risks and despite multiple attempts to convince him to comply -- ultimately the patient decided to sign out against medical advice. In an attempt to minimize harm, I will discharge him with oral Doxycyline until the end-date suggested by ID 09/22/23. I have informed him that this is non the recommended treatment for his infection and should he change his mind, he should return to the ED immediately. Time Spent With Patient Time: Total time managing care of this patient today ____ minutes.
--- NOTE | 2023-08-29 16:50 | PM.DS ---
DS: Providers Provider Date of Service: 08/29/23 Date of admission: 08/26/23 00:51 Primary care physician: [facility] Consults: 08/26/23 01:00 Consult to Orthopedics Routine Consulting Provider: [facility] Reason for consultation: Right elbow cellulitis, bursitis? abscess? Has provider been notified: No 08/26/23 07:55 Consult to Infectious Diseases Routine Consulting Provider: [facility] Reason for consultation: mrsa BACTEREMIA 08/26/23 07:57 Addiction Medicine Routine Consulting Provider: [facility] Reason for consultation: SUBSTANCE ABUSE, MRSA BACTEREMIA DS: Diagnosis Discharge Diagnosis (1) MRSA bacteremia: Status: Acute (2) Cellulitis of right elbow: Status: Acute (3) Opioid use disorder: Status: Acute DS: Summary Hospital Course Hospital Course: HPI from the admission H&P: Kyle Morin is a 53 years old man with past medical history significant for ongoing heroin abuse presents to the emergency department for evaluation after he was contacted due to positive blood culture for MRSA on August 18. On August 18, patient came to the emergency department for right elbow infection evaluation, blood workup was obtained but he left before being evaluated by ED provider. It seems like he did not want to wait. He is vague about when he was called to notify these positive results. He stated that he using an ointment as he has been having some blistering in the area and took some penicillin pills from a friend. Denied any chills fever, nausea, headache, dizziness or vomiting. He did not report any acute gastrointestinal genitourinary symptoms. He denies IV drug use but he inhales heroin (last use was tonight) and cocaine. Denies alcohol abuse or tobacco smoking. Today, in the ED he was found to have no leukocytosis. Hemoglobin is at baseline and platelets are mildly elevated. There is no lactic acidosis and there are no electrolyte imbalances. LFTs are normal. CRP is elevated 1.33. Right elbow x-rays are unremarkable. Chart review: Blood culture 08/19/2023 (one bottle): MRSA ED tx: NS 1 L bolus, vancomycin 2 g IV Hospital course: Patient had repeat cultures drawn and was started on IV vancomcyin. He was seen in consultation by ID and ortho. ID recommended orthopedics eval and IV vancomcyin until end date of 09/22/23. Ortho followed the patient daily in the hospital and recommended antibiotics with no surgical intervention needed. Over the course of his hospitalizaiton, the patient improved. Repeat blood cultures were negative. PLan for for PICC line placement and eventual transition to STR to complete IV vancomcyin until 09/21. However, the patient opted to leave against medical advice and in an attempt to minimize harm, doxycline 100mg BID has been prescribed until the end date. He was encouraged to return to the hospital should he change his mind. See separate AMA note for full details. Time Attestation Discharge Coordination Time (in mins): 45 Quality: Safe Use of Opioids Does Pt have an Active Cancer Diagnosis on the Problem List?: No Quality: Stroke Does the patient have a stroke diagnosis?: No Physical Exam Vital Signs: Vital Signs: Last Vital Signs Temp 98.2 F 08/29/23 07:45 Pulse 95 08/29/23 07:45 Resp 16 08/29/23 07:45 BP 148/69 H 08/29/23 07:45 Pulse Ox 97 08/29/23 07:45 O2 Del Method Room Air 08/29/23 07:45 BMI result Body Mass Index 30.1 Const: Other: aaox3 appropriate affect, insight, judgement R below improving redness/edema DS: Data Data Completed and Pending Labs on day of discharge: Preliminary micro results at discharge 08/25/23 16:50 Blood Culture - Preliminary Blood - Venous No growth after 48 hours. 08/25/23 16:50 Blood Culture - Preliminary Blood - Venous No growth after 48 hours. Discharge Plan Discharge Patient Disposition: Left Against Medical Advice Discharge Diagnosis: MRSA bacteremia Referrals: [facility] [Physician] - 1 Week Discharge Medications: New doxycycline hyclate 100 mg capsule 100 mg PO BID Qty: 48 0RF No Action buprenorphine-naloxone [Suboxone] 8-2 mg film 1 film sublingual BID ondansetron HCl 4 mg tablet 4 mg PO Q8H PRN (Reason: nausea/vomiting) loperamide [Anti-Diarrheal (loperamide)] 2 mg tablet 2 mg PO BID PRN (Reason: diarrhea) hydroxyzine pamoate 50 mg capsule 50 mg PO Q6H PRN (Reason: itch) docusate sodium 100 mg capsule 100 mg PO BEDTIME PRN (Reason: constipation) albuterol sulfate [Ventolin HFA] 90 mcg/actuation HFA aerosol inhaler 2 puff INHALATION Q4H PRN (Reason: SOB/Wheezing) ibuprofen 600 mg tablet 600 mg PO TID PRN (Reason: moderate pain) Discharge Orders: Discharge Order (Routine); Ordered 09/02/23 Ordered By: Eduar Stoddard Print Language: Greenlandic Care Plan Goals: left AMA Health Concerns: left AMA Plan of Treatment: left AMA Assessment: left AMA -- see d/c summary Discharge Date/Time: 08/29/23 16:00
[2023-08-30 04:56] LABS: HIV AB/AG Nonreactive (Nonreactive); HIV Num 1 0.06 S/CO (0.00-0.99)
[2023-09-01 14:09] LABS: HCV Log PCR <1.18 NOT DETECTED Log IU/mL (NOT DETECTED); HepC Viral Load <15 NOT DETECTED IU/mL (NOT DETECTED)
== END 2023-08-29 16:00 | disposition left against medical advice (07) | DRG 383 ==
LOC: HO.ED 22:30 → HO.EDOVER 08-26 01:02 → HO.S3 08-26 18:01
PROVIDERS: Internal Medicine; Nurse Practitioner Acute Care; Physician Assistant Medical; Admitting Provider Internal Medicine; Emergency Provider Internal Medicine; PCP Emergency Medicine; Referring Provider Nurse Practitioner Primary Care; Visit Provider Family Medicine
DX: L03.113 Cellulitis of right upper limb (principal); R78.81 Bacteremia; B95.62 Methicillin resistant Staphylococcus aureus infection as the cause of diseases classified elsewhere; F17.210 Nicotine dependence, cigarettes, uncomplicated; Z71.6 Tobacco abuse counseling; F11.20 Opioid dependence, uncomplicated; F14.10 Cocaine abuse, uncomplicated; Z79.899 Other long term (current) drug therapy
CPT/HCPCS: 36415; 73070; 80048; 80076; 80202; 82565; 83605; 84484; 85025; 85652; 86140; 87040; 87070; 87205; 87389; 87522; 87640; 87641; 93306; 99221; 99285; J3370; J3371; Q9957

== ENCOUNTER 2023-08-26 00:51 | Outpatient (BNV) | payer MEDICAID, SELFPAY | END 2023-08-26 07:00 | PROVIDERS: Admitting Provider Internal Medicine; Emergency Provider Internal Medicine; Visit Provider Internal Medicine Cardiovascular Disease | DX: R78.81 Bacteremia (principal); B95.62 Methicillin resistant Staphylococcus aureus infection as the cause of diseases classified elsewhere | CPT/HCPCS: 93306 ==

== ENCOUNTER → 2023-08-26 00:51 | Outpatient (BNV) | payer MEDICAID, SELFPAY | PROVIDERS: Admitting Provider Internal Medicine; Emergency Provider Internal Medicine; Visit Provider Internal Medicine | DX: M70.22 Olecranon bursitis, left elbow (principal); R78.81 Bacteremia; B95.62 Methicillin resistant Staphylococcus aureus infection as the cause of diseases classified elsewhere | CPT/HCPCS: 99222; 99232; 99233; 99239; 99499 ==

== ENCOUNTER → 2023-08-26 00:51 | Outpatient (BNV) | payer MEDICAID, SELFPAY | PROVIDERS: Admitting Provider Internal Medicine; Emergency Provider Internal Medicine; Visit Provider Internal Medicine | DX: L03.113 Cellulitis of right upper limb (principal); R78.81 Bacteremia; B95.62 Methicillin resistant Staphylococcus aureus infection as the cause of diseases classified elsewhere; F11.90 Opioid use, unspecified, uncomplicated | CPT/HCPCS: 99222 ==

== ENCOUNTER → 2023-08-26 00:51 | Outpatient (BNV) | payer MEDICAID, SELFPAY | PROVIDERS: Admitting Provider Internal Medicine; Emergency Provider Internal Medicine | DX: L03.113 Cellulitis of right upper limb (principal); R78.81 Bacteremia; B95.62 Methicillin resistant Staphylococcus aureus infection as the cause of diseases classified elsewhere | CPT/HCPCS: 99222; 99232 ==

== ENCOUNTER → 2023-10-14 13:32 | Outpatient (RCR) | payer MEDICAID, SELFPAY ==
--- NOTE | 2020-03-29 09:16 | P.CNHO_ITS ---
Subjective - Subjective Chief complaint: Blood clot Patient: new to practice Consult date: 03/29/20 Primary Care Provider: Kenya Lozoya NP HPI - Consult Narrative Reason for consult: Sub segmental pulmonary embolism Narrative: Kyle Morin is a 49 year old male referred for evaluation of coagulopathy. He was diagnosed with subsegmental pulmonary embolism of right lung in October 2019. Right pleuritic chest pain and shortness of breath. D-dimer was elevated at [address] angiogram revealed right lower lobe subsegmental pulmonary embolism. He has a history of IV drug abuse and has been shooting up heroin daily. He did not have any leg pain or swelling no arm pain or swelling. He shoots up heroin both in to his upper and lower extremities. He denies family history of thromboembolism. He does not recall any cancers in his family. He lives at home with his mother. He denies alcohol use but he smokes cigarettes. He has been on Eliquis 5 mg twice a day since October and he has been compliant. He denies any chest pain, shortness of breath or cough at this time. He denies any bruising or bleeding. Review of Systems - Constitutional Reports no additional constitutional complaints - Cardiovascular Reports no additional cardiovascular complaints - Respiratory Reports no additional respiratory complaints - Gastrointestinal Reports no additional gastrointestinal complaints Oncology Screenings - ECOG Performance Status ECOG Performance Status: 1 [facility] Medical History: Medical History (Last Reviewed 02/08/20 @ 08:26 by Estefanía Zarco MD) Pulmonary embolism Family History: Family History (Last Updated 03/29/20 @ 09:23 by Salena Rothman) Sister Diabetes Maternal Grandfather Diabetes Surgical History: Surgical History (Last Reviewed 02/08/20 @ 08:26 by Estefanía Zarco MD) History of appendectomy Social History: Social History (Last Updated 03/29/20 @ 09:23 by Salena Rothman) Alcohol History: Alcohol intake: unknown Alcohol History Details: Alcohol intake frequency: former alcohol drinker Alcohol type: beer Tobacco History: Smoking Status: Current every day smoker Cigarettes Per Day: 4 Years Smoked: 25 Smoked in Last 30 Days: Yes Substance Use History: Use of substances other than those prescribed or required for medical reasons : Yes Substance Use Type: Crack/Cocaine Substance Use Type: Heroin Substance Use Type: IV Drugs Home Medications and Allergies Allergies Allergy/AdvReac Type Severity Reaction Status Date / Time No Known Allergies Allergy Verified 12/26/19 23:31 Physical Exam Vital signs: Vital Signs Temp Pulse BP Pulse Ox 03/29/20 09:18 98.3 F 87 129/68 97 Intake and Output 03/28/20 03/29/20 03/29/20 22:59 06:59 14:59 Other: Weight 93.5 kg Weight in Grams [id number] Patient Weight 03/30/20 06:59 Weight 93.5 kg - Constitutional Present: no acute distress - Routine HEENT Exam Head: Present: normal inspection Eye: Present: EOMI - Routine Neck Exam Absent: swelling - Routine Respiratory Exam Absent: respiratory distress - Routine Cardiovascular Exam Cardiovascular: Present: S1, S2 Hem/Onc Consult Result - Labs Labs: Laboratory Tests 10/31/19 02/08/20 02/08/20 02:47 08:50 08:50 WBC 6.8 RBC 4.06 L Hgb 11.9 L Hct 36.5 L MCV 89.9 MCH 29.3 MCHC 32.6 BUN 16 Estimated Creat Clear 101.7 Assessment and Plan (1) Pulmonary emboli Status: Acute Qualifiers: Chronicity: chronic 1. This is a 49-year-old male diagnosed with right subsegmental pulmonary embolism in October 2019. This occurred in the setting of IV drug abuse which unfortunately he is continuing. There is no family history or personal history of prior thromboembolism. He patient is on Eliquis 5 mg b.i.d., he had a repeat CT angiogram last year which showed resolution of previously seen subsegmental pulmonary embolism. Even so, I have recommended that he be on anticoagulation till end of April which would complete 6 months of anticoagulation. I have explained to him that he is at high risk for recurrent clot because of his ongoing habit of smoking as well as IV drug abuse. There is no need for thrombophilia workup. I have also advised him about not shooting up drugs while he is on anticoagulation as he he is at risk of bleeding. He is interested in admitting himself to a drug rehabilitation program. I thank you very much for this consultation.
[2020-03-29 09:18] VITALS: BP 129/68; PULSE 87; TEMP 36.8; O2SAT 97; BMI 29.5
--- NOTE | 2020-03-29 09:53 | MHC.HEMONCMA ---
Patient was in for consult for PE. Has hx of drug abuse. Reviewed chart and updated medical history. Patient has to stop eliquis in 6 months and no follow up needed.
--- NOTE | 2020-06-06 11:43 | P.PNHO_ITS ---
Medical Summary - Medical Summary Date of Service: 06/06/20 Chief complaint: Follow-up Medical Summary: Diagnosis: Right subsegmental pulmonary embolism in November 2019 in the setting of IV drug abuse/smoking Interval History Interval history: Patient is here in follow-up. He states that he ran out of [employer] a few days ago. Unfortunately, he continues to use IV drugs and smoke cigarettes. At this time, he denies any chest pain or shortness of breath. No fever or chills. No leg or arm pain or swelling. [facility] Medical History: Medical History (Last Reviewed 02/08/20 @ 08:26 by Estefanía Zarco MD) Pulmonary embolism Family History: Family History (Last Updated 03/29/20 @ 09:23 by Salena Rothman) Sister Diabetes Maternal Grandfather Diabetes Surgical History: Surgical History (Last Reviewed 02/08/20 @ 08:26 by Estefanía Zarco MD) History of appendectomy Social History: Social History (Last Updated 03/29/20 @ 09:23 by Salena Rothman) Alcohol History: Alcohol intake: unknown Alcohol History Details: Alcohol intake frequency: former alcohol drinker Alcohol type: beer Tobacco History: Smoking Status: Current every day smoker Years Smoked: 25 Smoked in Last 30 Days: Yes Substance Use History: Use of substances other than those prescribed or required for medical reasons : Yes Substance Use Type: Crack/Cocaine Substance Use Type: Heroin Substance Use Type: IV Drugs Smoking status: Current every day smoker Home Medications and Allergies Allergies Allergy/AdvReac Type Severity Reaction Status Date / Time No Known Allergies Allergy Verified 12/26/19 23:31 Exam Vital signs: Vital Signs Temp 98.3 F 03/29/20 09:18 Pulse 87 03/29/20 09:18 BP 129/68 03/29/20 09:18 Pulse Ox 97 03/29/20 09:18 Weight 93.5 kg Body Mass Index 29.5 - Constitutional Present: no acute distress - Routine HEENT Exam Head: Present: normal inspection - Routine Respiratory Exam Absent: respiratory distress - Routine Cardiovascular Exam Cardiovascular: Present: S1, S2 Progress Note: A/P (1) Pulmonary emboli Status: Chronic Assessment and plan: 1. This is a 49-year-old male diagnosed with right subsegmental pulmonary embolism in October 2019. This occurred in the setting of IV drug abuse and smoking which unfortunately he is continuing. There is no family history or personal history of prior thromboembolism. There is no need for thrombophilia workup. Today we discussed pros and cons of long-term anticoagulation. He prefers to remain on Eliquis for now as he continues to have above mention risk factors. I have also advised him about not shooting up drugs while he is on anticoagulation as he he is at risk of bleeding. He is interested in admitting himself to a drug rehabilitation program. - Time Spent With Patient Total time spent is greater than 50% in coordination of care (as documented) at patient's floor/unit and/or counseling patient: 15 - 24 minutes
[2020-06-06 11:53] VITALS: BP 143/80; PULSE 77; RESP 12; TEMP 36.5; O2SAT 96; BMI 28.8
--- NOTE | 2020-06-11 16:26 | MHC.HEMONC ---
pt here for labs. Will evaluate in a.m.
[2020-06-11 16:34] LABS: MANUAL DIFF FLAG NO
[2020-06-11 16:37] LABS: Basophils Percent Auto 0.2 % (0-2); Eosinophils Absolute Auto 0.1 X10*3/uL (0.0-0.4); Eosinophils Percent Auto 1.2 % (0-4); Hematocrit 37.1 % (42-52); Hemoglobin 12.3 g/dl (14.0-18.0); Lymphocytes Absolute Auto 1.1 X10*3/uL (1.2-4.9); Mean Corpuscular HGB Conc 33.2 g/dl (31.0-36.0); Mean Corpuscular Hemoglobin 28.7 pg (27.0-33.0); Mean Corpuscular Volume 86.7 fL (80-98); Mean Platelet Volume 8.7 fL (9.4-12.4); Monocytes Absolute Auto 0.3 X10*3/uL (0.1-1.2); Neutrophils Absolute Auto 2.6 X10*3/uL (2.0-8.3); Neutrophils Percent Auto 63.6 % (45-73); Platelet Count 241 X10*3/uL (160-400); Red Blood Count 4.28 X10*6/uL (4.60-5.80); Red Cell Distribution Width 13.2 % (11.0-16.0); White Blood Count 4.2 X10*3/uL (4.8-10.8)
[2020-06-11 17:12] LABS: Alanine Aminotransferase 12 U/L (0-40); Albumin Level 4.1 g/dL (3.5-5.0); Alkaline Phosphatase 76 U/L (39-117); Anion Gap 12 (12-20); Aspartate Amino Transferase 22 U/L (5-37); Bilirubin Total 0.3 mg/dL (0.0-1.0); Blood Urea Nitrogen 13 mg/dL (9-16); Calcium 8.9 mg/dL (8.4-10.2); Carbon Dioxide 28 mmol/L (22-29); Chloride 105 mmol/L (96-108); Creatinine Clr Calc Pharmacy 124.8; Estimated Glomerular Filt Rate > 60; Glucose Random 112 mg/dL (60-115); Potassium 4.2 mmol/L (3.3-5.1); Sodium 141 mmol/L (135-145); Total Protein 6.8 g/dL (6.5-8.0)
== END | disposition home or self-care (01) ==
LOC: HO.ONC 03-29 09:01
PROVIDERS: PCP Nurse Practitioner Primary Care; Referring Provider Nurse Practitioner Primary Care; Visit Provider Internal Medicine
DX: Z86.711 Personal history of pulmonary embolism (principal); F11.10 Opioid abuse, uncomplicated; F17.210 Nicotine dependence, cigarettes, uncomplicated; Z79.01 Long term (current) use of anticoagulants
CPT/HCPCS: 36415; 80053; 85025; 99202; 99214

== ENCOUNTER 2024-09-18 14:17 | Emergency (ER) | payer MEDICAID, SELFPAY ==
[2024-09-18 14:30] VITALS: BP 124/88; BP 149/85; PULSE 80; PULSE 83; RESP 14; TEMP 36.8; O2SAT 97; O2SAT 98; BMI 27.6
--- NOTE | 2024-09-18 14:58 | PC.NURSE ---
security and male nurse ambulated patient to bathroom to do a pt change advisor and search of belongings.
--- NOTE | 2024-09-18 15:09 | ECG_ITS ---
Test Reason : CP Blood Pressure : */* mmHG Vent. Rate : 66 BPM Atrial Rate : 66 BPM P-R Int : 148 ms QRS Dur : 84 ms QT Int : 394 ms P-R-T Axes : 59 -36 70 degrees QTcB Int : 413 ms Normal sinus rhythm Left axis deviation Cannot rule out Anterior infarct (cited on or before 11-Feb-2022) Abnormal ECG When compared with ECG of 11-Feb-2022 23:23, No significant change was found Referred By: Estefanía Zarco Electronically Signed By: DEMI SO
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
[2024-09-18 15:42] LABS: MANUAL DIFF FLAG NO
--- OUTSIDE RECORDS SUMMARY | 2024-09-18 15:44 | XMS_ITS | Clinical Summary ---
Author Organization [employer] Address [address] [facility] [address] [place] [address] Care Team Providers Care Home Comfort Advisor Name Role Phone Kenya Lozoya ENMANUEL Primary Care Provider [phone] Allergies No known active allergies Medications albuterol 108 (90 Base) MCG/ACT inhalerIndicati ons:Uncomplicat ed opioid dependence (CMS/HCC) Inhale 2 puffs every 4 (four) hours if needed for wheezing or shortness of breath. 18 g 1 4 Active Spacer/Aero-Hol ding Chambers (OptiChamber Kanwal) miscIndications :Uncomplicated opioid dependence (CMS/HCC) 1 each every 4 (four) hours if needed (asthma). 1 each 4 Active ondansetron (Zofran) 4 MG tabletIndicatio ns:Uncomplicate d opioid dependence (CMS/HCC) Take 1 tablet (4 mg) by mouth every 8 (eight) hours if needed for nausea or vomiting for up to 10 doses. 10 tablet 4 Active hydrOXYzine pamoate (Vistaril) 50 MG capsuleIndicati ons:Uncomplicat ed opioid dependence (CMS/HCC) Take 1 capsule (50 mg) by mouth every 6 (six) hours if needed for itching. 10 capsule 4 Active ibuprofen 600 MG tabletIndicatio ns:Uncomplicate d opioid dependence (CMS/HCC) Take 1 tablet (600 mg) by mouth if needed in the morning, at noon, and at bedtime for moderate pain or fever. 10 tablet 4 Active Active Problems Problem Noted Date Diagnosed Date Tobacco dependence 08/03/2023 Hepatitis C virus infection cured after antiviral drug therapy 08/03/2023 History of pulmonary embolism 08/03/2023 20 20 History of appendectomy 08/03/2023 Opioid dependence, uncomplicated 08/03/2023 Mild intermittent asthma without complication Immunizations Immunization Administration Dates Next Due Influenza injectable quadrivalent preservative f ree 12/13/2019 Pneumococcal Polysaccharide PPSV23 05/18/2016 Tdap 03/11/2020 Social History Tobacco Use Types Packs/Day Years Used Date Smoking Tobacco: Every Day Cigarettes Smokeless Tobacco: Never Tobacco Cessation:Ready to Q uit: Not Asked; Counseling Given: Not Answered Sex and Gender Information Value Date Recorded Sex Assigned at Male 12/15/2021 10:16 AM EDT Legal Sex Male 10:16 AM EDT Gender Identity Male 12/15/2021 10:16 AM EDT Sexual Orientation Straight 12/15/2021 10 :16 AM EDT Last Filed Vital Signs Vital Sign Reading Time Taken Comments Blood Pressure 116/74 05/28/2021 12:04 AM EDT Pulse 84 05/28/2021 12:04 AM EDT Temperature - - Respiratory Rate - - Oxygen Saturation - - Inhaled Oxygen Concentration - - Weight 93.6 kg (206 lb 6.4 oz) 05/28/2021 12:04 AM EDT Height 175.3 cm (5' 9 ) 05/28/2021 12:04 AM EDT Body Mass Index 30.48 05/28/2021 12:04 AM EDT Plan of Treatment Health Maintenance Due Date Last Done Comments CT Colonography 1972 Colonoscopy 1972 Colorectal Cancer Screening 1972 Dental Oral Exam 1972 Dental Prophylaxis 1972 Dental X-Ray: Bitewings 1972 Dental X-Ray: Full Mouth 1972 Depression Screening 1972 FIT DNA/Cologuard 1972 FIT 1972 FOBT 1972 HIV Screening 1972 Lipid Panel 1972 SDOH Screening 1972 Sigmoidoscopy 1972 Disability Screening 1972 Alcohol/Substance Use Screening 1984 Family Planning (PISQ) 06/30/1987 Hepatitis C Screening 1990 Hepatitis B Vaccines (1 of 3 - 19+ 3-dose series) 06/30/1991 Pneumococcal Vaccine: 50+ Years (2 of 2 - PCV) 05/18/2017 05/18/2016 Zoster Vaccines (1 of 2) 2022 COVID-19 Vaccine (3 - 2023-2 5 season) 2023 06/10/2021, 05/20/2021 Tobacco Screening 08/02/2024 08/03/2023 Influenza Vaccine (#1) 2024 12/13/2019 DTaP/Tdap/Td Vaccines (2 - T d or Tdap) 03/11/2030 03/11/2020 RSV Patients and Patients Aged 60 years or older (1 - 1-dose 75+ series) 06/30/2047 HIB Vaccines Aged Out No longer eligi ble based on patient's age to complete this topic HPV Vaccines Aged Out No longer eligi ble based on patient's age to complete this topic Hepatitis A Vaccines Aged Out No long er eligible based on patient's age to complete this topic IPV Vaccines Aged Out No longer eligi ble based on patient's age to complete this topic Meningococcal B Vaccine Aged Out No l onger eligible based on patient's age to complete this topic Meningococcal Vaccine Aged Out No pato tammie eligible based on patient's age to complete this topic RSV under 20 months Aged Out No longe r eligible based on patient's age to complete this topic Rotavirus Vaccines Aged Out No longer eligible based on patient's age to complete this topic Insurance [facility] C3 [facility]ENT[facility] MEDICAID STAND ADULT Care Teams Home Comfort Advisor Relationship Specialty Start Date End Date Kenya Lozoya ANP [address] [place] [id number] PCP - General Family Medicine 12/01/19
[2024-09-18 15:45] LABS: Hematocrit 37.4 % (42.0-52.0); Hemoglobin 12.8 g/dl (14.0-18.0); Imm Gran Abs Auto 0.02 X10*3/uL (0.00-0.03); Imm Gran Pct Auto 0.3 % (0.0-0.4); Lymphocytes Absolute Auto 0.8 X10*3/uL (1.2-4.9); Mean Corpuscular HGB Conc 34.2 g/dl (31.0-36.0); Mean Corpuscular Hemoglobin 29.5 pg (27.0-33.0); Mean Corpuscular Volume 86.2 fL (80.0-98.0); NRBC Abs Auto 0.000 X10*3/uL (0.0-0.012); NRBC Pct Auto 0.0 /100WBC (0.0-0.2); Platelet Count 282 X10*3/uL (160-400); Red Blood Count 4.34 X10*6/uL (4.60-5.80); White Blood Count 7.2 X10*3/uL (4.8-10.8)
[2024-09-18 15:55] LABS: Anion Gap 12 (12-20); Blood Urea Nitrogen 15 mg/dL (9-16); Calcium 8.6 mg/dL (8.4-10.2); Carbon Dioxide 27 mmol/L (22-29); Chloride 104 mmol/L (96-108); Creatinine Clr Calc Pharmacy 148.3; Estimated Glomerular Filt Rate > 60; Potassium 3.9 mmol/L (3.3-5.1); Sodium 139 mmol/L (135-145)
[2024-09-18 16:00] VITALS: BP 131/66; PULSE 85; RESP 18; TEMP 36.8; O2SAT 97
--- NOTE | 2024-09-18 16:13 | PC.NURSE ---
pt sleeping, wakes to verbal stimulus, vss, pt changed over by security/belongings in [place] shelf [facility], tech was unable to obtain EKG as pt was not cooperating--but did allow labs. plan of care ongoing
--- NOTE | 2024-09-18 16:37 | MHC.EDTECH ---
Pt is refusing EKG, taking leads off and not staying still, Doctor aware.
--- NOTE | 2024-09-18 17:46 | PC.NURSE ---
pt continues to sleep, urine obtained, plan of care ongoing
[2024-09-18 18:04] LABS: Cannabinoid Screen Urine Not Detected (Not Detect)
[2024-09-18 18:05] VITALS: BP 149/85; PULSE 83; RESP 14; TEMP 36.7; O2SAT 98
--- NOTE | 2024-09-18 19:31 | PC.NURSE ---
pt agreed to ekg with pct Arely, pts gown and bed found to be soaked in urine, pt states he spilled his urinal on himself, pt did not make staff aware of this. pt ambulated with steady gait to bathroom and changed into new clothes. bed linen changed. pt back in [address] sleeping. on continuous o2 monitoring.
[2024-09-18 21:05] VITALS: BP 146/84; PULSE 84; RESP 14; TEMP 36.9; O2SAT 94
[2024-09-19 03:42] VITALS: BP 140/92; PULSE 98; RESP 17; TEMP 36.7; O2SAT 98
[2024-09-19 08:19] VITALS: BP 154/97; PULSE 90; RESP 14; O2SAT 98
--- NOTE | 2024-09-19 09:02 | PC.NURSE ---
PT A&O X4 VSS NAD NO complaints-l ambulates to and from BR independently.
--- NOTE | 2024-09-19 16:47 | PC.NURSE ---
Resting queitly. Skin PWD. easy unlabored resp. States he'd like to transfer to a detox in [facility] and is aware that Care Team is working on his disposition. Calm. Offered water.
--- NOTE | 2024-09-19 17:47 | PHA.MEDREC ---
Addendum entered by Suhail Gallagher [facility] 09/19/24 18:02: med rec reviewed Original Note: Pharmacy Consult ? Medication Reconciliation Pharmacy has completed the medication reconciliation. Spoke with pt and he confirmed he is not taking any medications at this time.
--- NOTE | 2024-09-19 17:57 | MHC.CARE ---
T/w called both [facility] in [place] and [facility] in [place] and [facility] is going to [facility] and [facility] does not have any beds today. Will keep trying [facility].
--- NOTE | 2024-09-19 18:03 | MHC.CARE ---
T/w called the [facility] in [place] and there was no answer. Pt. continues to only want treatment in [place]. T/w will continue to call throughout shift to see if there is any detox bed availability.
--- NOTE | 2024-09-19 19:23 | MHC.CARE ---
[facility] intake called- patient has been approved and placed on waitlist. If bed becomes available tonight they will contact the CARE team. If patient is not accepted tonight, CARE team will follow up with [facility] between 7-8am tomorrow.
[2024-09-19 20:38] VITALS: BP 179/99; PULSE 87; RESP 20; TEMP 37.1; O2SAT 99
[2024-09-20 07:57] VITALS: RESP 16
--- NOTE | 2024-09-20 08:40 | MHC.CARE ---
accepted to [facility] for noon or earlier. Patient to be picked up at the [facility] ED waiting room. they will call CARE team to coordinate
[2024-09-20 09:26] VITALS: BP 139/84; PULSE 84; RESP 14; TEMP 36.8; O2SAT 98
--- NOTE | 2024-09-20 09:30 | PC.NURSE ---
pt refused Narcan on discharge I don't need that shit, I am going to a detox
== END 2024-09-20 09:30 | disposition home or self-care (01) ==
PROVIDERS: Emergency Provider Emergency Medicine Emergency Medical Services
DX: F11.90 Opioid use, unspecified, uncomplicated (principal)
CPT/HCPCS: 36415; 80048; 80307; 85025; 93005; 99285; S9485

== ENCOUNTER → 2024-09-18 15:09 | Outpatient (BNV) | payer MEDICAID, SELFPAY | PROVIDERS: Emergency Provider Emergency Medicine Emergency Medical Services; Visit Provider Internal Medicine | DX: R94.31 Abnormal electrocardiogram [ECG] [EKG] (principal); R07.9 Chest pain, unspecified | CPT/HCPCS: 93010 ==